=== PATIENT | female | born 1970 | race Caucasian/White ===

== ENCOUNTER 2016-06-04 09:50 | Emergency (ER) | payer OTHER ==
[~2016-06-04] VITALS: Ht 162.6 cm; Wt 88.6 kg
[2016-06-04 09:53] VITALS: TEMP 36.6; Ht 162.6 cm; Wt 88.6 kg
[2016-06-04 10:52] LABS: BASO % 0.8 %; BASO ABS # 0.04 K/uL (0-0.2); COMPLETE YES; EOS % 2.1 %; HEMATOCRIT 38.9 % (37-47); IG% 0.4 %; LYMPH % 36.3 %; LYMPH ABS # 1.86 K/uL (1.2-3.4); MEAN CORPUSCULAR HEMOGLOBIN 31.4 pg (25-34); MEAN CORPUSCULAR HGB CONC 35.2 g/dl (32-36); MEAN PLATELET VOLUME 8.9 fL (7.4-10.4); MONO % 7.8 %; NEUT % 52.6 %; PLATELET COUNT 207 K/uL (130-400); RED BLOOD COUNT 4.37 M/uL (4.2-5.4); WHITE BLOOD COUNT 5.12 K/uL (4.8-10.8)
[2016-06-04] MEDS ORDERED: RIZA10TA18 PO (11:13)
[2016-06-04] MEDS ORDERED: CYNI1000 IM (11:13)
[2016-06-04] MEDS ORDERED: MAGN250T16 PO (11:13)
[2016-06-04] MEDS ORDERED: RIBO1TAB4 PO (11:13)
[2016-06-04] MEDS ORDERED: DULO-24 PO (11:13)
[2016-06-04] MEDS ORDERED: GABA-113 PO (11:13)
[2016-06-04] MEDS ORDERED: ESTR2TAB PO (11:13)
[2016-06-04] MEDS ORDERED: MELO7.5T5 PO (11:13)
[2016-06-04] MEDS ORDERED: LDXCR30 TOP (11:13)
[2016-06-04] MEDS ORDERED: CITA40TA12 PO (11:13)
[2016-06-04] MEDS ORDERED: PRLSR20 PO (11:13)
[2016-06-04 11:14] LABS: BUN/CREATININE RATIO 17.1 (10-20); CALCIUM 9.1 mg/dl (8.5-10.1); CREATININE 0.96 mg/dl (0.60-1.20); POTASSIUM 3.7 mmol/L (3.5-5.1)
[2016-06-04 11:25] LABS: ALB/GLOB RATIO 0.9 (0.9-2); THYROID STIMULATING HORMONE 2.62 uIu/ml (0.300-4.500)
--- NOTE | 2016-06-04 11:30 | EMERGENCY ROOM VISIT NOTE ---
History Report prepared by [place]: Tien Sandoval Under the Supervision of: Dr. Cristi Johnson M.D. First contact with patient: 09:58 Chief Complaint: MENTAL HEALTH EVALUATION Stated Complaint: DEPRESSION History of Present Illness The patient is a 45 year old female who presents to the Emergency Room with complaints of worsening depression over the past two weeks. The patient is feeling suicidal, and has a plan in place. The patient's depression is related to chronic medical symptoms she has been managing, including muscle weakness, joint pain, dyspnea on exertion, and migraines. The patient follows up with Neurology and Rheumatology. The source of her complaints has yet to be identified. The patient has had multiple negative Lyme tests. She denies the possibility of . The patient was referred to the ED after seeing her PCP today. Source of History: patient Onset: two weeks Position: other (psyche) Quality: other (depression) Timing: worsening Associated Symptoms: + SOB, + headache, + weakness Note: Positive SI. Review of Systems See HPI for pertinent positives & negatives. A total of 10 systems reviewed and were otherwise negative. Past Medical & Surgical Medical Problems: (1) Chronic pain Family History No pertinent family history Social History Smoking Status: Never Smoker Marital Status: Housing Status: lives with family Current/Historical Medications Scheduled Citalopram Hydrobromide (Celexa), 40 MG PO DAILY Cyanocobalamin (Cyanocobalamin), 1,000 MCG IM MONTHLY Duloxetine HCl (Cymbalta), 2 CAP PO DAILY Estradiol (Estradiol), 0.5 TAB PO DAILY Gabapentin (Neurontin), 300 MG PO TID Magnesium Oxide (Mg Supplement (Magnesium Oxide), 250 MG PO BID Meloxicam (Mobic), 7.5 MG PO BIDM Omeprazole (Prilosec), 20 MG PO DAILY Riboflavin (Riboflavin), 400 MG PO DAILY Scheduled PRN Fluocinonide (Lidex 0.05% Cream), 1 APPLN TOP BID PRN for UNDECIDED Rizatriptan Benzoate (Maxalt), 10 MG PO UD PRN for Migraine Allergies Coded Allergies: Sulfa Antibiotics (Unverified Allergy, Severe, HIVES, FEVER, 06/04/16) Morphine (Unverified Allergy, Intermediate, HIVES, SWELLING, FEVER, NAUSEA , 06/04/16) Penicillins (Unverified Allergy, Intermediate, HIVES, SWELLING, 06/04/16) Physical Exam Vital Signs Date Time Temp Pulse Resp B/P Pulse Ox O2 Delivery O2 Flow Rate FiO2 06/04/16 15:59 73 16 127/79 97 06/04/16 15:51 85 16 127/73 98 06/04/16 10:51 73 14 119/79 97 Room Air 06/04/16 09:53 36.6 75 16 144/92 99 Room Air Physical Exam GENERAL: Patient is a healthy-appearing well-nourished. Tearful on exam. HEAD: Normocephalic atraumatic EYES: Ocular movements intact pupils equal and react to light OROPHARYNX mucous membranes are moist no exudates present no erythema or edema present NECK: Supple no nuchal rigidity CHEST: Good equal expansion LUNGS: Clear and equal to auscultation CARDIAC: Normal S1 and S2 ABDOMEN: Soft nontender no guarding BACK: No CVA tenderness EXTREMITIES: No pain upon palpation normal muscle strength in all groups no clubbing cyanosis or edema NEURO: Patient is following commands is answering questions appropriately. Alert and oriented x3 Cranial Nerves 2-12 grossly intact PSYCH: Tearful on exam. Admits to suicidal ideation. Medical Decision & Procedures Laboratory Results 06/04/16 10:32 Red Blood Count 4.37, Mean Corpuscular Volume 89.0, Mean Corpuscular Hemoglobin 31.4, Mean Corpuscular Hemoglobin Concent 35.2, Mean Platelet Volume 8.9, Neutrophils (%) (Auto) 52.6, Lymphocytes (%) (Auto) 36.3, Monocytes (%) (Auto) 7.8, Eosinophils (%) (Auto) 2.1, Basophils (%) (Auto) 0.8, Neutrophils # (Auto) 2.69, Lymphocytes # (Auto) 1.86, Monocytes # (Auto) 0.40, Eosinophils # (Auto) 0.11, Basophils # (Auto) 0.04 06/04/16 10:32 Test 06/04/16 10:13 06/04/16 10:15 06/04/16 10:32 Bedside Glucose 109 mg/dl (70-90) Urine Color DK YELLOW Urine Appearance CLEAR (CLEAR) Urine pH 8.5 (4.5-7.5) Urine Specific Ensign 1.009 (1.000-1.030) Urine Protein NEG (NEG) Urine Glucose (UA) NEG (NEG) Urine Ketones NEG (NEG) Urine Occult Blood NEG (NEG) Urine Nitrite NEG (NEG) Urine Bilirubin NEG (NEG) Urine Urobilinogen NEG (NEG) Urine Leukocyte Esterase SMALL (NEG) Urine WBC (Auto) 10-30 /hpf (0-5) Urine RBC (Auto) 0-4 /hpf (0-4) Urine Hyaline Casts (Auto) 1-5 /lpf (0-5) Urine Epithelial Cells (Auto) >30 /lpf (0-5) Urine Bacteria (Auto) 1+ (NEG) Urine Opiates Screen NEG (NEG) Urine Methadone, Qualitative NEG (NEG) Urine Barbiturates NEG (NEG) Urine Phencyclidine (PCP) Level NEG (NEG) Ur Amphetamine/Methamphetamine NEG (NEG) MDMA (Ecstasy) Screen NEG (NEG) Urine Benzodiazepines Screen NEG (NEG) Urine Cocaine Metabolite NEG (NEG) Urine Marijuana (THC) NEG (NEG) White Blood Count 5.12 K/uL (4.8-10.8) Red Blood Count 4.37 M/uL (4.2-5.4) Hemoglobin 13.7 g/dL (12.0-16.0) Hematocrit 38.9 % (37-47) Mean Corpuscular Volume 89.0 fL (80-100) Mean Corpuscular Hemoglobin 31.4 pg (25-34) Mean Corpuscular Hemoglobin Concent 35.2 g/dl (32-36) Platelet Count 207 K/uL (130-400) Mean Platelet Volume 8.9 fL (7.4-10.4) Neutrophils (%) (Auto) 52.6 % Lymphocytes (%) (Auto) 36.3 % Monocytes (%) (Auto) 7.8 % Eosinophils (%) (Auto) 2.1 % Basophils (%) (Auto) 0.8 % Neutrophils # (Auto) 2.69 K/uL (1.4-6.5) Lymphocytes # (Auto) 1.86 K/uL (1.2-3.4) Monocytes # (Auto) 0.40 K/uL (0.11-0.59) Eosinophils # (Auto) 0.11 K/uL (0-0.5) Basophils # (Auto) 0.04 K/uL (0-0.2) RDW Standard Deviation 38.6 fL (36.4-46.3) RDW Coefficient of Variation 12.0 % (11.5-14.5) Immature Granulocyte % (Auto) 0.4 % Immature Granulocyte # (Auto) 0.02 K/uL (0.00-0.02) Anion Gap 9.0 mmol/L (3-11) Est Creatinine Clear Calc Drug Dose 78.1 ml/min Estimated GFR () 81.6 Estimated GFR (Non- 70.4 BUN/Creatinine Ratio 17.1 (10-20) Calcium Level 9.1 mg/dl (8.5-10.1) Total Bilirubin 0.4 mg/dl (0.2-1) Direct Bilirubin 0.1 mg/dl (0-0.2) Aspartate Amino Transf (AST/SGOT) 12 U/L (15-37) Alanine Aminotransferase (ALT/SGPT) 20 U/L (12-78) Alkaline Phosphatase 95 U/L (45-117) Total Protein 7.2 gm/dl (6.4-8.2) Albumin 3.5 gm/dl (3.4-5.0) Globulin 3.7 gm/dl (2.5-4.0) Albumin/Globulin Ratio 0.9 (0.9-2) Thyroid Stimulating Hormone (TSH) 2.620 uIu/ml (0.300-4.500) Ethyl Alcohol mg/dL < 3.0 mg/dl (0-3) Labs reviewed by ED physician. ED Course 1115: Past medical records reviewed. The patient was evaluated in room A8. A complete history and physical examination was performed. 1400: The patient was accepted at [facility]. Transfer is being arranged. Medical Decision Differential diagnosis: Etiologies such as mood disorder, infection, hypoglycemia, electrolyte abnormalities, cardiac sources, intracerebral event, toxicologic, neurologic, as well as others were entertained. This is a 45-year-old female who presents emergency department complaining of suicidal ideation. The patient was medically cleared by me. I did discuss case with case management who got the patient accepted to .[facility]. Patient was in agreement with the treatment plan. Impression Primary Impression: Mood disorder Scribe Attestation The scribe's documentation has been prepared under my direction and personally reviewed by me in its entirety. I confirm that the note above accurately reflects all work, treatment, procedures, and medical decision making performed by me. Departure Information Dispostion Mental Health Acute Care Referrals Ame Costa D.O. (PCP) Forms HOME CARE DOCUMENTATION FORM, IMPORTANT VISIT INFORMATION Patient Instructions My [facility]
[2016-06-04 11:34] LABS: URINE APPEARANCE CLEAR (CLEAR); URINE BILIRUBIN NEG (NEG); URINE COLOR DK YELLOW; URINE EPITHELIAL CELL AUTO >30 /lpf (0-5); URINE NITRITE NEG (NEG); URINE PH 8.5 (4.5-7.5); URINE SPECIFIC GRAVITY 1.009 (1.000-1.030); UROBILINOGEN NEG (NEG)
[2016-06-04 11:38] LABS: MANUAL MICROSCOPIC REQUIRED? NO; REVIEW REQ? NO
[2016-06-04 12:19] LABS: BENZODIAZEPINE, URINE NEG (NEG); COCAINE,URINE NEG (NEG); PHENCYCLIDINE, URINE NEG (NEG)
[2016-06-04 15:59] VITALS: BP 127/79; PULSE 73; O2SAT 97
== END 2016-06-04 15:58 ==
LOC: C.EDB 09:52 → C.EDA 15:58
DX: Z00.8 Encounter for other general examination (principal); F32.9 Major depressive disorder, single episode, unspecified; G89.29 Other chronic pain

== ENCOUNTER 2020-01-17 12:18 | Inpatient (IN) ==
[2020-01-17] MEDS ORDERED: ONDANSETRON INJ 2 MG/ML 2 ML VIAL IV STA (12:40)
[2020-01-17] MEDS ORDERED: SODIUM CHLORIDE 0.9% 1000ML 1,000 ML IV SCH (12:45)
[2020-01-17 13:16] LABS: Basophils # (auto) 0.03 K/uL (0-0.2); Basophils % (auto) 0.4 %; Eosinophils # (auto) 0.08 K/uL (0-0.5); Hematocrit (blood only) 42.4 % (37-47); Hemoglobin 14.6 g/dL (12.0-16.0); Immature Granulocytes # (auto) 0.02 K/uL (0.00-0.02); Immature Granulocytes % (auto) 0.3 %; Lymphocytes # (auto) 1.37 K/uL (1.2-3.4); Lymphocytes % (auto) 17.5 %; Mean Corpuscular Hemoglobin 31.3 pg (25-34); Mean Corpuscular Hgb Conc 34.4 g/dL (32-36); Mean Corpuscular Volume 90.8 fL (80-100); Mean Platelet Volume 8.9 fL (7.4-10.4); Monocytes % (auto) 5.1 %; Neutrophils # (auto) 5.94 K/uL (1.4-6.5); Neutrophils % (auto) 75.7 %; Platelet Count 256 K/uL (130-400); RDW Coefficient of Variation 12.7 % (11.5-14.5); RDW Standard Deviation 41.9 fL (36.4-46.3); Red Blood Count 4.67 M/uL (4.2-5.4); White Blood Count 7.84 K/uL (4.8-10.8)
--- NOTE | 2020-01-17 13:16 | XRay Report ---
XR chest 1V portable CLINICAL HISTORY: Right upper quadrant pain. COMPARISON STUDY: No previous studies for comparison. FINDINGS: Lung volumes are mildly diminished. Linear bibasilar opacities represent atelectasis. There is no consolidation or evidence for pulmonary edema. Cardiac size is normal. Mediastinal contours ar e normal. IMPRESSION: Low lung volumes with bibasilar atelectasis. No acute findings. ACT 112: Negative or not required by law. Electronically signed by: Ayan Umanzor M.D. 01/17/2020 1:15 PM
--- NOTE | 2020-01-17 13:18 | XRay Report ---
KUB CLINICAL HISTORY: Right upper quadrant abdominal pain. COMPARISON STUDY: None. FINDINGS: A few prominent loops of small bowel within left mid abdomen are noted. There is no convinc ing evidence for a bowel obstruction on this exam. Postoperative findings within the lumbosacral spin e are noted. A right pelvic calcification favors a phlebolith. IMPRESSION: A few prominent loops of small bowel within left mid abdomen without convincing evidence for a bowel obstruction. ACT 112: Negative or not required by law. Electronically signed by: Ayan Umanzor M.D. 01/17/2020 1:16 PM
[2020-01-17 13:35] LABS: Alanine Aminotransferase 480 U/L (12-78); Albumin Level 3.4 gm/dl (3.4-5.0); Aspartate Aminotransferase 548 U/L (15-37); BUN Creatinine Ratio 17.4 (10-20); Blood Urea Nitrogen 16 mg/dl (7-18); Calcium 9.4 mg/dl (8.5-10.1); Carbon Dioxide 26 mmol/L (21-32); Chloride 107 mmol/L (98-107); Est GFR (African American) 82.5; Est GFR (Non-African American) 71.2; Glucose 97 mg/dl (70-99); Potassium 3.9 mmol/L (3.5-5.1); Sodium 139 mmol/L (136-145)
[2020-01-17 13:40] LABS: Albumin Globulin Ratio 0.8 (0.9-2); Alkaline Phosphatase 212 U/L (45-117); Bilirubin,Total 1.4 mg/dl (0.2-1); Lipase 5864 U/L (73-393); Total Protein 7.4 gm/dl (6.4-8.2); Troponin I < 0.015 ng/ml (0-0.045)
--- NOTE | 2020-01-17 14:15 | Ultrasound Report ---
BILIARY ULTRASOUND CLINICAL HISTORY: Right upper quadrant abdominal pain COMPARISON STUDY: No previous studies for comparison. FINDINGS: There is increased hepatic echogenicity, likely secondary to hepatic steatosis. There is pr esumed focal fatty sparing adjacent to the gallbladder. No pancreatic masses are visualized There is no hydronephrosis. There are multiple shadowing gallbladder calculi. There is borderline gallbladder wall thickening and mild gallbladder wall hyperemia. Clinical correlation regards to cholecystitis is recommended. The t echnologist reports a positive sonographic Nuno sign. The common bile duct measures 6 mm. IMPRESSION: 1. Cholelithiasis, borderline gallbladder wall thickening with mild gallbladder wall hyperemia. Techn ologist reported positive sonographic Nuno sign. Clinical correlation in regards to acute cholecyst itis is recommended. A nuclear medicine hepatobiliary study could be obtained in follow-up to assess cystic duct patency as deemed clinically appropriate 2. Hepatic steatosis ACT 112: Negative or not required by law. Electronically signed by: Иван Meza M.D. 01/17/2020 2:14 PM
--- NOTE | 2020-01-17 14:32 | Emergency Department Note ---
Impression & Plan Acute cholecystitis, Acute gallstone pancreatitis, Abdominal pain, epigastric ED Provider Note NAME: BEATA CHOUDHURY AGE: 49 SEX: F : 1970 ARRIVES VIA: Walk-In INFORMANT: Patient, ED PROVIDER(S): Dirk Santana DO CHIEF COMPLAINT: Epigastric pain HPI: The patient is a 49-year-old female who presented to the emergency departm ent for an evaluation of epigastric pain. She is had pain over the last few days but it became worse over the last 24 hours. She notices worsening pain with food as well as ambulation. She notices pain specifically in her epigastric region but also radiates to her back. She denies having any specific chest pain or difficulty breathing. She has had no lower extremity swelling. She states the pain is moderate to severe. She states the pain is improved by remaining still and not moving. She has not seen her primary care physician for this pain. The patient is concerned that this could be her gallbladder. The patient does not use alcoholic beverages. ROS: See above HPI for pertinent positives & negatives. A total of 10 systems reviewed and were otherwise negative. PAST MEDICAL HISTORY: See Below PAST SURGICAL HISTORY: See Below FAMILY HISTORY: See Below SOCIAL HISTORY: See Below HOME MEDICATIONS: See Below ALLERGIES: See Below VITALS: See Below PHYSICAL EXAMINATION: GENERAL: The patient is awake and alert. She is very anxious appearing and appears to be in significant pain. EYES: The conjunctivae are clear. The pupils are round and reactive. EARS, NOSE, MOUTH AND THROAT: The nose is without any evidence of any deformity. NECK: The neck is nontender and supple. RESPIRATORY: Normal respiratory effort is noted there is no evidence of wheezing rhonchi or rales CARDIOVASCULAR: Regular rate and rhythm noted there no murmurs rubs or gallops normal S1 normal S2. GASTROINTESTINAL: The abdomen is mildly distended but soft. There is significant epigastric and right upper quadrant tenderness to palpation. There is mild guarding in the right upper quadrant. MUSCULOSKELETAL/EXTREMITIES: There is no evidence of gross deformity full range of motion is noted in the hips and shoulders. SKIN: There is no obvious evidence of any rash. There are no petechiae, pallor or cyanosis noted. NEUROLOGIC: Patient is awake alert and oriented x3 strength is symmetric patellar reflexes are 2+ bilaterally MEDICAL DECISION MAKING: The patient is a 49-year-old female who presented to the emergency department for an evaluation of upper abdominal pain. The patient had mostly epigastric abdominal pain but also had right upper quadrant pain on physical exam. She had back pain as well. The patient's history and physical exam appear to be consistent with gallbladder pathology. This was confirmed on radiographic as well as laboratory studies. She was treated with IV fluids and IV pain medication. She was also given proton pump inhibitor and H2 blockers. She was treated with IV antibiotics for presumed cholecystitis noted on ultrasound. She was found to have an elevated lipase. Her common bile duct was normal size. Is possible she may have passed a gallstone. I discussed the patient's condition with the on-call general surgical group. They have agreed to evaluate the patient for further management but recommend the patient be evaluated by medicine as well as GI. I discussed this case with the [facility]. They will evaluate the patient in the emergency department for further management and disposition. Triage Nursing notes reviewed. Prior medical records reviewed Vital Signs: reviewed and remarkable for elevated blood pressure. Differential diagnosis: Etiologies such as appendicitis, diverticulitis, obstruction, inflammatory bowel disease, renal colic, PUD, biliary pathology, pancreatitis, mesenteric ischemia, aortic pathology, infections, genitourinary, UTI, perforated viscus, as well as others were entertained. ER treatment provided: See below Diagnostics interpreted by me: ECG: EKG was obtained in the emergency department. My interpretation is normal sinus rhythm at 75 bpm. There is no ectopy. There was no acute ST segment abnormalities noted. There is no previous tracing for comparison. Cardiac Monitoring: An order was placed for continuous cardiac monitoring. The monitor shows a rate of 82 bpm with sinus rhythm. Laboratory studies: As stated above and show below. Imaging studies: See below Consultation(s): 1445: I discussed this case with Otf who is on-call for the general surgical group. They will evaluate the patient in consultation but recommend that medicine admit the patient for further work-up as well as consultation with GI 1500: I discussed this case with Helga who is on-call for the [facility] group. They will evaluate the patient in the emergency department for further management and disposition. Past Med/Surg History Medical History Chronic fatigue Fibromyalgia Generalized osteoarthritis GERD without esophagitis Hx of migraines Surgical History History of partial hysterectomy Hx of lumbosacral spine surgery Family History Brother Leukemia Sister Melanoma Social History Smoking Status: Never smoker Hx Alcohol Use: Yes Alcohol Intake Frequency: Monthly or Less Feels Safe at Home: Yes Allergies Allergies Allergy/AdvReac Type Severity Reaction Status Date / Time Sulfa (Sulfonamide Allergy Severe HIVES, Unverified 06/04/16 11:02 Antibiotics) FEVER morphine Allergy Intermediate HIVES, Unverified 06/04/16 11:02 SWELLING, FEVER, NAUSEA Penicillins Allergy Intermediate HIVES, Unverified 06/04/16 11:02 SWELLING Home Meds Home Medications Medication Instructions Recorded Confirmed cetirizine 10 mg PO DAILY 01/17/20 01/17/20 cholecalciferol (vitamin D3) 50 mcg PO Q OTHER DAY 01/17/20 01/17/20 cranberry 400 mg PO DAILY 01/17/20 01/17/20 cyanocobalamin (vitamin B-12) 100 mcg PO DAILY 01/17/20 01/17/20 duloxetine 30 mg PO DAILY 01/17/20 01/17/20 estradiol 1 mg PO DAILY 01/17/20 01/17/20 fluticasone propionate [Flonase] 1 spray INTRANASAL DAILY PRN 01/17/20 01/17/20 gabapentin 300 mg PO DAILY 01/17/20 01/17/20 lul (Zingiber officinalis) 550 mg PO Q OTHER DAY 01/17/20 01/17/20 lorazepam 1 mg PO BID PRN 01/17/20 01/17/20 magnesium oxide 250 mg PO DAILY 01/17/20 01/17/20 nabumetone 500 mg PO DAILY 01/17/20 01/17/20 omeprazole 40 mg PO DAILY 01/17/20 01/17/20 riboflavin (vitamin B2) 400 mg PO DAILY 01/17/20 01/17/20 rizatriptan 10 mg PO UD PRN 01/17/20 01/17/20 turmeric root extract 500 mg PO Q OTHER DAY 01/17/20 01/17/20 vitamin E 400 unit PO Q OTHER DAY 01/17/20 01/17/20 Results & Data (ED) Vital Signs Vital Signs - 24 hr 01/17/20 12:22 01/17/20 13:50 01/17/20 16:00 Temperature 37.2 C Temperature Source Oral Pulse Rate 83 Pulse Rate [Left Finger] 76 88 Respiratory Rate 20 23 21 Respiratory Effort / Characteristics Non-Labored Respiratory Depth Normal Respiratory Pattern Regular Blood Pressure 147/104 H Blood Pressure [Left Arm] 129/96 162/88 H Blood Pressure Mean 118 Blood Pressure Mean [Left Arm] 107 112 Blood Pressure Position Sitting Pulse Oximetry 96 98 98 Oxygen Delivery Method Room Air Sepsis Recent Fever Within 48 Hours No Sepsis New/Unexplained Change in Mental Status No Sepsis Action Taken by Nursing No Action Required Home Medications Current Medication List: was personally reviewed by me Laboratory Data Attestation: I reviewed the patient's lab results. Result diagrams: 01/17/20 13:08 01/17/20 13:08 Lab Results 01/17/20 01/17/20 01/17/20 Range/Units 13:08 13:08 14:10 WBC 7.84 (4.8-10.8) K/uL RBC 4.67 (4.2-5.4) M/uL Hgb 14.6 (12.0-16.0) g/dL Hct 42.4 (37-47) % MCV 90.8 (80-100) fL MCH 31.3 (25-34) pg MCHC 34.4 (32-36) g/dL RDW Std Deviation 41.9 (36.4-46.3) fL RDW Coeff of Darrin 12.7 (11.5-14.5) % Plt Count 256 (130-400) K/uL MPV 8.9 (7.4-10.4) fL Immature Gran % (Auto) 0.3 % Neut % (Auto) 75.7 % Lymph % (Auto) 17.5 % Dickey % (Auto) 5.1 % Eos % (Auto) 1.0 % Baso % (Auto) 0.4 % Neut # (Auto) 5.94 (1.4-6.5) K/uL Lymph # (Auto) 1.37 (1.2-3.4) K/uL Dickey # (Auto) 0.40 (0.11-0.59) K/uL Eos # (Auto) 0.08 (0-0.5) K/uL Baso # (Auto) 0.03 (0-0.2) K/uL Immature Gran # (Auto) 0.02 (0.00-0.02) K/uL Sodium 139 (136-145) mmol/L Potassium 3.9 (3.5-5.1) mmol/L Chloride 107 (98-107) mmol/L Carbon Dioxide 26 (21-32) mmol/L Anion Gap 6.0 (3-11) BUN 16 (7-18) mg/dl Creatinine 0.93 (0.6-1.2) mg/dl Est Cr Clr Drug Dosing 81.0 ml/min Est GFR ( Amer) 82.5 Est GFR (Non-Af Amer) 71.2 BUN/Creatinine Ratio 17.4 (10-20) Glucose 97 (70-99) mg/dl Calcium 9.4 (8.5-10.1) mg/dl Total Bilirubin 1.4 H (0.2-1) mg/dl AST 548 H (15-37) U/L ALT 480 H (12-78) U/L Alkaline Phosphatase 212 H (45-117) U/L Troponin I < 0.015 (0-0.045) ng/ml Total Protein 7.4 (6.4-8.2) gm/dl Albumin 3.4 (3.4-5.0) gm/dl Globulin 4.0 (2.5-4.0) gm/dl Albumin/Globulin Ratio 0.8 L (0.9-2) Lipase 5864 H (73-393) U/L Urine Color Yellow Urine Appearance Clear (Clear) Urine pH 7.5 (4.5-7.5) Ur Specific [place] 1.007 (1.000-1.030) Urine Protein Negative (Negative) Urine Glucose (UA) Negative (Negative) Urine Ketones Negative (Negative) Urine Blood Negative (Negative) Urine Nitrite Negative (Negative) Urine Bilirubin Negative (Negative) Urine Urobilinogen Negative (Negative) Ur Leukocyte Esterase Negative (Negative) Administered Medications Discontinued Medications Sodium Chloride (Nss 1000ml) 1,000 mls @ 999 mls/hr IV .Q1H1M [facility] Stop: 01/17/20 13:45 Last Infusion: 01/17/20 14:05 Dose: 0 mls/hr Documented by: [id number] Admin: 01/17/20 13:14 Dose: 999 mls/hr Documented by: [id number] Famotidine (Pepcid 20mg Iv Push) 20 mg in 5 mls @ 2.5 mls/min IV NOW STA Stop: 01/17/20 14:38 Last Admin: 01/17/20 15:02 Dose: 2.5 mls/min Documented by: [id number] Pantoprazole Sodium 40 mg/ (Syringe) 10 mls @ 5 mls/min IV NOW ONE Stop: 01/17/20 14:38 Last Admin: 01/17/20 15:02 Dose: 5 mls/min Documented by: [id number] Cefoxitin Sodium (Mefoxin) 2,000 mg in 60 mls @ 100 mls/hr IV NOW STA Stop: 01/17/20 15:12 Last Admin: 01/17/20 15:02 Dose: 100 mls/hr Documented by: [id number] Ondansetron HCl (Ondansetron Inj 2 Mg/Ml 2 Ml Vial) 4 mg IV NOW STA Stop: 01/17/20 12:41 Last Admin: 01/17/20 13:13 Dose: 4 mg Documented by: [id number] Imaging Data Radiologist's Impression: Patient: BEATA CHOUDHURY Admit Date: 01/17/20 MR#: [id number] Address1: [address] [place] [address] Acct ID:[id number] Address2: Date: 1970 [facility] Zip: [place] [address] Age: 49 Location: ED Sex: F Room/Bed: Att Phy: Diagnosis: PAIN IN CENTER ABD RADIATING TO BACK Kristen Phy: Ame Costa DO Service Date: 01/17/20 [facility] Phy: Interpreting Phy: Ayan Umanzor MD Admit Phy: Ordering Phy: Dirk Santana DO cc: ~ XR chest 1V portable CLINICAL HISTORY: Right upper quadrant pain. COMPARISON STUDY: No previous studies for comparison. FINDINGS: Lung volumes are mildly diminished. Linear bibasilar opacities represe nt atelectasis. There is no consolidation or evidence for pulmonary edema. Cardiac size is normal. Mediastinal contours are normal. IMPRESSION: Low lung volumes with bibasilar atelectasis. No acute findings. ACT 112: Negative or not required by law. Electronically signed by: Ayan Umanzor M.D. 01/17/2020 1:15 PM Dictated: 01/17/201313 Transcribed: 01/17/201313 Patient: BEATA CHOUDHURY Admit Date: 01/17/20 MR#: [id number] Address1: [address] [facility] [address] [facility] Acct ID:[id number] Address2: Date: 1970 [facility] Zip: [place] [address] Age: 49 Location: ED Sex: F Room/Bed: Att Phy: Diagnosis: PAIN IN CENTER ABD RADIATING TO BACK Kristen Phy: Ame Costa DO Service Date: 01/17/20 [facility] Phy: Interpreting Phy: Ayan Umanzor MD Admit Phy: Ordering Phy: Dirk Santana DO cc: ~ KUB CLINICAL HISTORY: Right upper quadrant abdominal pain. COMPARISON STUDY: None. FINDINGS: A few prominent loops of small bowel within left mid abdomen are noted. There is no convincing evidence for a bowel obstruction on this exam. Postoperative findings within the lumbosacral spine are noted. A right pelvic calcification favors a phlebolith. IMPRESSION: A few prominent loops of small bowel within left mid abdomen without convincing evidence for a bowel obstruction. ACT 112: Negative or not required by law. Electronically signed by: Ayan Umanzor M.D. 01/17/2020 1:16 PM Dictated: 01/17/201315 Transcribed: 01/17/201315 Patient: BEATA CHOUDHURY Admit Date: 01/17/20 MR#: [id number] Address1: [address] [facility] Acct ID:[id number] Address2: Date: 1970 [facility] Zip: [place] [address] Age: 49 Location: ED Sex: F Room/Bed: Att Phy: Diagnosis: PAIN IN CENTER ABD RADIATING TO BACK Kristen Phy: Ame Costa DO Service Date: 01/17/20 Fam Phy: Interpreting Phy: Иван Meza MD Admit Phy: Ordering Phy: Dirk Santana DO cc: ~ BILIARY ULTRASOUND CLINICAL HISTORY: Right upper quadrant abdominal pain COMPARISON STUDY: No previous studies for comparison. FINDINGS: There is increased hepatic echogenicity, likely secondary to hepatic steatosis. There is presumed focal fatty sparing adjacent to the gallbladder. No pancreatic masses are visualized There is no hydronephrosis. There are multiple shadowing gallbladder calculi. There is borderline gallbladder wall thickening and mild gallbladder wall hyperemia. Clinical correlation regards to cholecystitis is recommended. The technologist reports a positive sonographic Nuno sign. The common bile duct measures 6 mm. IMPRESSION: 1. Cholelithiasis, borderline gallbladder wall thickening with mild gallbladder wall hyperemia. Technologist reported positive sonographic Nuno sign. Clinical correlation in regards to acute cholecystitis is recommended. A nuclear medicine hepatobiliary study could be obtained in follow-up to assess cystic duct patency as deemed clinically appropriate 2. Hepatic steatosis ACT 112: Negative or not required by law. Electronically signed by: Иван Meza M.D. 01/17/2020 2:14 PM Dictated: 01/17/20 1411 Transcribed: 01/17/20 1411 Blood Pressure Blood Pressure Findings: Normal blood pressure Discharge Plan Visit Data Chief Complaint: Abdominal Pain Stated Complaint: PAIN IN CENTER ABD RADIATING TO BACK ED Provider: Dirk Santana Discharge Problem: Acute cholecystitis, Acute gallstone pancreatitis, Abdominal pain, epigastric Patient Disposition: Being Evaluated by Hospitalist Condition: Good Forms Stand Alone Forms: [facility] [address] [place] Prescriptions Prescriptions: No Action cetirizine 10 mg tablet 10 mg PO DAILY RF: 0 omeprazole 40 mg capsule,delayed release(DR/EC) 40 mg PO DAILY RF: 0 estradiol 1 mg tablet 1 mg PO DAILY RF: 0 duloxetine 30 mg capsule,delayed release(DR/EC) 30 mg PO DAILY RF: 0 rizatriptan 10 mg tablet 10 mg PO UD PRN (Reason: Migraine Headache) RF: 0 gabapentin 300 mg capsule 300 mg PO DAILY RF: 0 lorazepam 1 mg tablet 1 mg PO BID PRN (Reason: Anxiety) RF: 0 nabumetone 500 mg tablet 500 mg PO DAILY RF: 0 magnesium oxide 250 mg magnesium Tablet 250 mg PO DAILY RF: 0 riboflavin (vitamin B2) 400 mg Tablet 400 mg PO DAILY RF: 0 cyanocobalamin (vitamin B-12) 100 mcg Tablet 100 mcg PO DAILY RF: 0 cranberry 400 mg Capsule 400 mg PO DAILY RF: 0 fluticasone propionate [Flonase] 50 mcg/actuation [place],Suspension 1 spray INTRANASAL DAILY PRN (Reason: Congestion) RF: 0 vitamin E 400 unit Capsule 400 unit PO Q OTHER DAY RF: 0 lul (Zingiber officinalis) 550 mg Capsule 550 mg PO Q OTHER DAY RF: 0 cholecalciferol (vitamin D3) 50 mcg (2,000 unit) Capsule 50 mcg PO Q OTHER DAY RF: 0 turmeric root extract 500 mg Capsule 500 mg PO Q OTHER DAY RF: 0 Referrals Referrals: Ame Costa DO [Primary Care Provider] -
[2020-01-17 14:36] LABS: Appearance Urine Clear (Clear); Bilirubin Urine Negative (Negative); Blood Urine Negative (Negative); Color Urine Yellow; Glucose Urine UA Negative (Negative); Ketones Urine Negative (Negative); Leukocyte Esterase Urine Negative (Negative); Nitrite Urine Negative (Negative); Protein Urine Negative (Negative); Specific Gravity Urine 1.007 (1.000-1.030); Urobilinogen Urine Negative (Negative); pH Urine 7.5 (4.5-7.5)
[2020-01-17] MEDS ORDERED: PANTOprazole 40 MG in SYRINGE 0 ML IV ONE (14:37)
[2020-01-17] MEDS ORDERED: fentaNYL citrate 100 MCG/2 ML VIAL IV PRN (14:37)
[2020-01-17] MEDS ORDERED: FAMOTIDINE 20MG IV PUSH 20 MG/5 ML SYR IV STA (14:37)
[2020-01-17] MEDS ORDERED: cefOXitin 2,000 MG/60 ML BAG IV STA (14:37)
--- NOTE | 2020-01-17 14:42 | Electrocardiogram Report ---
Test Reason : Blood Pressure : / mmHG Vent. Rate : 075 BPM Atrial Rate : 075 BPM P-R Int : 134 ms QRS Dur : 080 ms QT Int : 408 ms P-R-T Axes : 044 017 023 degrees QTc Int : 455 ms Normal sinus rhythm No previous ECGs available Confirmed by Speedy Ryan ([id number]) on 01/17/2020 2:41:57 PM Referred By: REFERRED SELF Confirmed By:Fabian Ryan
--- NOTE | 2020-01-17 15:09 | Surgery Consultation ---
Date of Consultation January 17, 2020 Assessment & Plan (1) Biliary acute pancreatitis: normal white count, equivocal U/S findings for acute cholecystitis trend labs, GI consult will follow, eventual lap esther once pancreatitis resolves Supervising Physician Co-Signing Physician Notes Patient seen and examined, labs and imaging reviewed, agree with above. 49-year-old female presented to the emergency department with epigastric abdominal pain that started yesterday after eating [employer] breakfast sandwich. She has had a few episodes similar to this in the past, but never this severe. The pain did resolve after a few hours but then recurred after eating some crackers. Otherwise healthy, not on any blood thinners. On exam she is afebrile stable vitals. Abdomen is soft but tender to palpation in the epigastrium and right upper quadrant. Negative Nuno sign. Her labs reveal total bilirubin of 1.4 and elevated transaminitis along with an elevated lipase. Ultrasound showed gallstones with a 6 mm bile duct and equivocal signs for cholecystitis. 49-year-old female with likely choledocholithiasis with cholecystitis and pancreatitis Admit to medicine GI consult Possible ERCP versus MRCP Plan for laparoscopic cholecystectomy either this admission or in short interval follow-up Discussed the risk of surgery to include but not limited to bleeding, infection, retained stone, bile leak, damage surrounding structures including common bile duct, conversion open, need for future more extensive surgery, and the risk of anesthesia Surgery will continue to follow The diagnosis, details of the procedure and recovery, plan of care were discussed the patient, all questions were answered, the patient expressed understanding agrees the plan of care as stated History of Present Illness History of Present Illness 49 y/o female with severe abdominal pain yesterday afternoon a few hours after eating. Pain lasted several hours, she later tried to eat cheese and crackers and pain returned and has been constant. Nausea, no vomiting. Few episodes of post prandial pain in the past but nothing like this. Allergies Allergy/AdvReac Type Severity Reaction Status Date / Time Sulfa (Sulfonamide Allergy Severe HIVES, Unverified 06/04/16 11:02 Antibiotics) FEVER morphine Allergy Intermediate HIVES, Unverified 06/04/16 11:02 SWELLING, FEVER, NAUSEA Penicillins Allergy Intermediate HIVES, Unverified 06/04/16 11:02 SWELLING Home Medications Home Medications Medication Instructions Recorded Confirmed Type CITALOPRAM HYDROBROMIDE (CELEXA) 40 mg PO DAILY #0 tab 06/04/16 History Cyanocobalamin 1,000 mcg IM MONTHLY #0 06/04/16 History Duloxetine HCl (Cymbalta) 2 cap PO DAILY 30 Days #60 cap 06/04/16 History ESTRADIOL 0.5 tab PO DAILY 90 Days #45 tab 06/04/16 History FLUOCINONIDE (LIDEX 0.05% CREAM) 1 applic TOPICAL BID PRN #0 06/04/16 History Gabapentin (Neurontin) 300 mg PO TID #0 cap 06/04/16 History MAGNESIUM OXIDE (MG SUPPLEMENT 250 mg PO BID #0 06/04/16 History (MAGNESIUM OXIDE) Meloxicam (Mobic) 7.5 mg PO BIDM #0 tab 06/04/16 History OMEPRAZOLE (PRILOSEC) 20 mg PO DAILY #0 cap 06/04/16 History RIBOFLAVIN 400 mg PO DAILY #0 06/04/16 History RIZATRIPTAN BENZOATE (MAXALT) 10 mg PO UD PRN #0 tab 06/04/16 History Patient History Medical History Chronic fatigue Fibromyalgia Generalized osteoarthritis GERD without esophagitis Hx of migraines Surgical History History of partial hysterectomy Hx of lumbosacral spine surgery Family History Brother Leukemia Sister Melanoma Social History Smoking Status: Never smoker Hx Alcohol Use: Yes Alcohol Intake Frequency: Monthly or Less Feels Safe at Home: Yes Review of Systems Constitutional: no fever and no chills Gastrointestinal: + abdominal pain and + nausea; no vomiting Physical Exam Constitutional: WD/WN, vitals as above Respiratory: normal respiratory effort, lungs clear to auscultation Cardiovascular: RRR, no murmur, no edema Gastrointestinal (Abdomen): Inspection/Auscultation: + abdomen distended (minimal) Percussion/Palpation: + abdomen tender (mild epigastric/RUQ) and abdomen soft Results & Data ([facility]) Vital Signs (Past 12 Hours) Vital Signs Temp Pulse Pulse Resp BP BP Pulse Ox 01/17/20 13:50 76 23 129/96 98 01/17/20 12:22 37.2 C 83 20 147/104 H 96 PG Care Time/CCT Total # of Minutes Spent Total Time Spent with Patient: Total time spent is greater than 50% in coordination of care (as documented) at patient's floor/unit and/or counseling patient: Coding Level of Care Code 70748 Inpt Consult Level 3 Diagnoses Biliary acute pancreatitis K85.10
--- NOTE | 2020-01-17 16:25 | History & Physical Report ---
Date of Service January 17, 2020 Assessment & Plan (1) Biliary acute pancreatitis: CBD 6 mm on ultrasound but no clear evidence for stone in CBD. Cholelithiasis. May have passed stone. - Consult GI for recommendation - MRCP vs ERCP - Appreciate surgical input - eventual cholecystectomy once pancreatitis improved - NPO with aggressive IVF hydration - Follow labs - Zofran for nausea - Pain control (2) GERD without esophagitis: - Continue PPI therapy (3) Nonintractable migraine: Holding supplements while NPO - pt uses riboflavin and mag oxide for prevention at baseline. Has Maxalt if needed for symptoms (4) Fibromyalgia: - Continue Cymbalta and gabapentin Pt seen and evaluated with collaborating physician, Dr. Recinos. Plan of care discussed and as outlined above. All questions answered. Pt requests to be full code as long as a reasonable chance of recovery. is her decision maker if she is unable to speak for herself. Will start heparin subQ for DVT prophylaxis. Cesar Tran PA-C History of Present Illness Chief Complaint: Epigastric pain Primary Care Provider: Ame Costa DO This is a 49 y/o female with a hx of GERD, migraines, depression, and OA who presents with epigastric pain and nausea that started yesterday. Pt reports the abrupt onset of sharp, stabbing epigastric pain yesterday late morning. It radiated to her RUQ, through to her back and to her right shoulder blade. She had associated nausea but no vomiting. The pain lasted about 3-4 hours before it subsided. By late last evening, she had started to feel better so she attempted to eat some crackers. Shortly thereafter, she developed recurrent severe epigastric pain and and nausea. She tried to sleep it off last evening but the pain kept waking her up. This morning she attempted to get ready to go to work but the pain was so severe that she decided to drive herself to the ED for evaluation. Nausea continued this morning but was relieved by Zofran given in the ED. She felt cool and clammy last evening and had diaphoresis when pain was severe but denies any fevers. This morning her urine was dark but no dysuria, hematuria, frequency. Bowel pattern is unchanged from baseline variability. She denies melena and hematochezia. She reports at least two similar episodes of pain over the summer that both occurred after eating strawberries. Those episodes lasted about an hour and resolved without additional intervention. She has a history of acid reflux that is controlled on omeprazole 40 mg daily. No prior history of gallbladder disease or pancreatitis. Allergies Allergy/AdvReac Type Severity Reaction Status Date / Time Sulfa (Sulfonamide Allergy Severe HIVES, Unverified 06/04/16 11:02 Antibiotics) FEVER morphine Allergy Intermediate HIVES, Unverified 06/04/16 11:02 SWELLING, FEVER, NAUSEA Penicillins Allergy Intermediate HIVES, Unverified 06/04/16 11:02 SWELLING Home Medications Home Medications Medication Instructions Recorded Confirmed Type cetirizine 10 mg PO DAILY 01/17/20 01/17/20 History cholecalciferol (vitamin D3) 50 mcg PO Q OTHER DAY 01/17/20 01/17/20 History cranberry 400 mg PO DAILY 01/17/20 01/17/20 History cyanocobalamin (vitamin B-12) 100 mcg PO DAILY 01/17/20 01/17/20 History duloxetine 30 mg PO DAILY 01/17/20 01/17/20 History estradiol 1 mg PO DAILY 01/17/20 01/17/20 History fluticasone propionate [Flonase] 1 spray INTRANASAL DAILY PRN 01/17/20 01/17/20 History gabapentin 300 mg PO DAILY 01/17/20 01/17/20 History lul (Zingiber officinalis) 550 mg PO Q OTHER DAY 01/17/20 01/17/20 History lorazepam 1 mg PO BID PRN 01/17/20 01/17/20 History magnesium oxide 250 mg PO DAILY 01/17/20 01/17/20 History nabumetone 500 mg PO DAILY 01/17/20 01/17/20 History omeprazole 40 mg PO DAILY 01/17/20 01/17/20 History riboflavin (vitamin B2) 400 mg PO DAILY 01/17/20 01/17/20 History rizatriptan 10 mg PO UD PRN 01/17/20 01/17/20 History turmeric root extract 500 mg PO Q OTHER DAY 01/17/20 01/17/20 History vitamin E 400 unit PO Q OTHER DAY 01/17/20 01/17/20 History Past Med/Surg History Medical History Chronic fatigue Fibromyalgia Generalized osteoarthritis GERD without esophagitis Hx of migraines Surgical History History of partial hysterectomy Hx of lumbosacral spine surgery Family History Brother Leukemia Sister Melanoma Social History Smoking Status: Never smoker Hx Alcohol Use: Yes Alcohol Intake Frequency: Monthly or Less Feels Safe at Home: Yes Review of Systems Review of Systems: All systems reviewed & are unremarkable except as noted in HPI & below Constitutional: + chills, + fatigue and + anorexia; no fever Eyes: no diplopia Ear, Nose, Mouth, Throat: no nasal congestion, no nasal discharge, no sore throat and no dysphagia Respiratory: no cough, no chest congestion, no dyspnea and no wheezing Cardiovascular: + palpitations and + lightheadedness (related to severity of pain); no chest pain, no syncope and no edema Gastrointestinal: as per Subjective / HPI, + abdominal pain, + bloating and + nausea; no vomiting, no diarrhea/loose stools, no blood in stools and no melena Genitourinary: no dysuria, no urinary frequency, no urinary urgency and no hematuria Musculoskeletal: + back pain and + myalgia Integumentary: no rash and no change in skin color Neurologic: + headache(s); no unsteadiness, no generalized weakness, no paresthesia and no confusion Psychiatric: no depression and no anxiety Physical Exam Constitutional: WD/WN, vitals as above no acute distress Eyes: + anicteric sclerae; no conjunctival abnormality ENMT: external ear and nose normal, oropharynx normal Neck: trachea midline Respiratory: no respiratory distress and does not use accessory muscles Auscultation: lungs clear to auscultation bilaterally; no rales, no rhonchi and no wheezes Cardiovascular: Rate/Rhythm: regular rate and regular rhythm Heart Sounds: no gallop, no murmur and no cardiac rub Extremities: normal capillary refill; no calf tenderness and no pedal edema Gastrointestinal (Abdomen): Inspection/Auscultation: normal bowel sounds Percussion/Palpation: + abdomen tender (moderate epigastric and RUQ tenderness to light palpation) and abdomen soft +Nuno's sign Musculoskeletal: Head/Neck/Chest: normocephalic, head atraumatic and neck supple Extremities: no cyanosis and no clubbing Skin: no rashes, warm and dry no jaundice Neurologic: moves all extremities; no focal motor deficits Speech / Cognition: normal speech Psychiatric: A+Ox3, euthymic affect Results & Data Results & Data ([facility]) Vital Signs (Past 12 Hours) Vital Signs Temp Pulse Pulse Resp BP BP Pulse Ox 01/17/20 13:50 76 23 129/96 98 01/17/20 12:22 37.2 C 83 20 147/104 H 96 Laboratory Results Laboratory Results - last 24 hr 01/17/20 01/17/20 01/17/20 13:08 13:08 14:10 WBC 7.84 RBC 4.67 Hgb 14.6 Hct 42.4 MCV 90.8 MCH 31.3 MCHC 34.4 RDW Std Deviation 41.9 RDW Coeff of Darrin 12.7 Plt Count 256 MPV 8.9 Immature Gran % (Auto) 0.3 Neut % (Auto) 75.7 Lymph % (Auto) 17.5 [place] % (Auto) 5.1 Eos % (Auto) 1.0 Baso % (Auto) 0.4 Neut # (Auto) 5.94 Lymph # (Auto) 1.37 [place] # (Auto) 0.40 Eos # (Auto) 0.08 Baso # (Auto) 0.03 Immature Gran # (Auto) 0.02 Sodium 139 Potassium 3.9 Chloride 107 Carbon Dioxide 26 Anion Gap 6.0 BUN 16 Creatinine 0.93 Est Cr Clr Drug Dosing 81.0 Est GFR ( Amer) 82.5 Est GFR (Non-Af Amer) 71.2 BUN/Creatinine Ratio 17.4 Glucose 97 Calcium 9.4 Total Bilirubin 1.4 H AST 548 H ALT 480 H Alkaline Phosphatase 212 H Troponin I < 0.015 Total Protein 7.4 Albumin 3.4 Globulin 4.0 Albumin/Globulin Ratio 0.8 L Lipase 5864 H Urine Color Yellow Urine Appearance Clear Urine pH 7.5 Ur Specific [place] 1.007 Urine Protein Negative Urine Glucose (UA) Negative Urine Ketones Negative Urine Blood Negative Urine Nitrite Negative Urine Bilirubin Negative Urine Urobilinogen Negative Ur Leukocyte Esterase Negative Diagnostic Findings Chest X-ray 01/17/20 - IMPRESSION: Low lung volumes with bibasilar atelectasis. No acute findings. KUB 01/17/20 - IMPRESSION: A few prominent loops of small bowel within left mid abdomen without convincing evidence for a bowel obstruction. Biliary U/S 01/17/20 - IMPRESSION: 1. Cholelithiasis, borderline gallbladder wall thickening with mild gallbladder wall hyperemia. Technologist reported positive sonographic Nuno sign. Clinical correlation in regards to acute cholecystitis is recommended. A nuclear medicine hepatobiliary study could be obtained in follow-up to assess cystic duct patency as deemed clinically appropriate. 2. Hepatic steatosis Medications Administered Discontinued Medications Sodium Chloride (Nss 1000ml) 1,000 mls @ 999 mls/hr IV .Q1H1M YUE Stop: 01/17/20 13:45 Last Infusion: 01/17/20 14:05 Dose: 0 mls/hr Documented by: [id number] Admin: 01/17/20 13:14 Dose: 999 mls/hr Documented by: [id number] Famotidine (Pepcid 20mg Iv Push) 20 mg in 5 mls @ 2.5 mls/min IV NOW STA Stop: 01/17/20 14:38 Last Admin: 01/17/20 15:02 Dose: 2.5 mls/min Documented by: [id number] Pantoprazole Sodium 40 mg/ (Syringe) 10 mls @ 5 mls/min IV NOW ONE Stop: 01/17/20 14:38 Last Admin: 01/17/20 15:02 Dose: 5 mls/min Documented by: [id number] Cefoxitin Sodium (Mefoxin) 2,000 mg in 60 mls @ 100 mls/hr IV NOW STA Stop: 01/17/20 15:12 Last Admin: 01/17/20 15:02 Dose: 100 mls/hr Documented by: [id number] Ondansetron HCl (Ondansetron Inj 2 Mg/Ml 2 Ml Vial) 4 mg IV NOW STA Stop: 01/17/20 12:41 Last Admin: 01/17/20 13:13 Dose: 4 mg Documented by: [id number] Code Status & VTE Plan VTE Prophylaxis Plan VTE Prophylaxis will be ordered: Yes Supervising Physician Co-Signing Physician Notes Attending addendum: The patient was seen and examined in emergency room She has been complaining of epigastric pain following food radiation to the back and also to the right shoulder Denies any fever and/or chills Nausea without vomiting On examination Lying in bed with some abdominal discomfort Febrile and hemodynamically stable with blood pressure on the upper side at 162/88 Chest-left was patent bilaterally Heart-S1-S2, regular Abdomen-mildly distended, tender in upper quadrants with a positive Nuno sign Extremity-trace edema bilaterally Admission labs and imaging studies reviewed Has acute cholecystitis and gallstone pancreatitis Surgery and GI has been consulted Agree with assessment plan as outlined above by VINNIE Ward Dr (1) Biliary acute pancreatitis Acute pancreatitis complication: unspecified Qualified Code(s): K85.10 - Biliary acute pancreatitis without necrosis or infection (2) Nonintractable migraine Migraine type: unspecified Status migrainosus presence: without status migrainosus Qualified Code(s): G43.909 - Migraine, unspecified, not intractable, without status migrainosus
[2020-01-17] MEDS: D5W AND NSS 1,000 ML IV SCH (19:09)
[2020-01-17] MEDS ORDERED: RIZATRIPTAN BENZOATE 10 MG TAB PO PRN (19:30)
[2020-01-17] MEDS: KETOROLAC 30 MG/ML VIAL IV PRN (20:04)
[2020-01-17] MEDS ORDERED: ACETAMINOPHEN 1000 MG/100 ML IV IV PRN (20:22)
[2020-01-17] MEDS: ONDANSETRON INJ 2 MG/ML 2 ML VIAL IV PRN (20:28)
[2020-01-17] MEDS: HEPARIN SOD 5,000 UNIT/0.5 ML VIAL SQ SCH (21:32)
[2020-01-18] MEDS: D5W AND NSS 1,000 ML IV SCH ×2 (01:58→09:45)
[2020-01-18] MEDS: KETOROLAC 30 MG/ML VIAL IV PRN ×2 (03:05→09:41)
[2020-01-18] MEDS: HEPARIN SOD 5,000 UNIT/0.5 ML VIAL SQ SCH (06:23)
[2020-01-18] MEDS ORDERED: INDOMETHACIN 50 MG SUPP PR ONE (07:18)
[2020-01-18 08:43] LABS: Basophils # (auto) 0.03 K/uL (0-0.2); Basophils % (auto) 0.5 %; Eosinophils # (auto) 0.17 K/uL (0-0.5); Eosinophils % (auto) 2.6 %; Hematocrit (blood only) 40.9 % (37-47); Hemoglobin 13.3 g/dL (12.0-16.0); Immature Granulocytes # (auto) 0.02 K/uL (0.00-0.02); Immature Granulocytes % (auto) 0.3 %; Lymphocytes # (auto) 1.58 K/uL (1.2-3.4); Lymphocytes % (auto) 24.1 %; Mean Corpuscular Hemoglobin 30.8 pg (25-34); Mean Corpuscular Hgb Conc 32.5 g/dL (32-36); Mean Corpuscular Volume 94.7 fL (80-100); Monocytes # (auto) 0.41 K/uL (0.11-0.59); Monocytes % (auto) 6.3 %; Neutrophils # (auto) 4.35 K/uL (1.4-6.5); Neutrophils % (auto) 66.2 %; Platelet Count 196 K/uL (130-400); RDW Standard Deviation 44.8 fL (36.4-46.3); Red Blood Count 4.32 M/uL (4.2-5.4); White Blood Count 6.56 K/uL (4.8-10.8)
[2020-01-18 09:06] LABS: Albumin Level 2.9 gm/dl (3.4-5.0); BUN Creatinine Ratio 11.5 (10-20); Bilirubin Direct 0.2 mg/dl (0-0.2); Bilirubin,Total 0.6 mg/dl (0.2-1); Calcium 8.9 mg/dl (8.5-10.1); Creatinine Clr Calc Pharmacy 97.7 ml/min; Est GFR (African American) 103.6; Est GFR (Non-African American) 89.4; Potassium 3.6 mmol/L (3.5-5.1); Total Protein 6.8 gm/dl (6.4-8.2)
--- NOTE | 2020-01-18 09:10 | Surgery Progress Note ---
Date of Service January 18, 2020 Assessment & Plan (1) Acute gallstone pancreatitis: labs pending plan for ERCP today will decide on timing of lap esther Admission and Anticipated Discharge Date Admission Date: January 17, 2020 Supervising Physician Co-Signing Physician Notes Patient seen and examined, labs reviewed, agree with above. Admitted with choledocholithiasis and gallstone pancreatitis. Overnight she was doing well but during the day she has had increasing pain along with the development of a migraine headache. She is also having nausea and was vomiting upon entering the room. On exam she is afebrile, currently in distress due to nausea and vomiting. Her abdomen is soft, tender to palpation in the epigastrium but improved from yesterday. LFTs are downtrending with a normal bilirubin and the lipase is downtrending as well. She is planned for an ERCP/EUS today. We will plan on laparoscopic cholecystectomy possible cholangiogram tomorrow, depending upon her symptoms. The risks of the procedure were discussed to include but not limited to bleeding, infection, retained stone, bile leak, damage surrounding structures including common bile duct, conversion open, need for future or more extensive surgery, and the risk of anesthesia. Subjective some epigastric pain, scant flatus Physical Exam Gastrointestinal (Abdomen): Percussion/Palpation: + abdomen tender (mild epigastric) and abdomen soft Results & Data ([facility]) Vital Signs (Past 12 Hours) Vital Signs Temp Pulse Pulse Resp BP Pulse Ox 01/18/20 07:00 36.6 C 71 18 112/77 96 01/17/20 23:00 37.2 C 81 20 108/71 94 01/17/20 22:20 77 PG Care Time/CCT Total # of Minutes Spent Total Time Spent with Patient: Total time spent is greater than 50% in coordination of care (as documented) at patient's floor/unit and/or counseling patient: Coding Level of Care Code 00497 Subseq Hosp Care Lvl 1 Diagnoses Acute gallstone pancreatitis K85.10
--- NOTE | 2020-01-18 09:29 | Gastrointestinal Consultation ---
Date of Consultation January 18, 2020 Assessment & Plan (1) Acute gallstone pancreatitis: (2) Acute cholecystitis: Pt is a 49 y/o female admitted with suspected gallstone pancreatitis, w cholecystitis. - Keep NPO for EUS/ERCP in OR by Dr. Green today. Send Indomethacin 100mg AZ to OR holding to be given as ERCP pre med - LR IVF @ 125ml/hr - Surgery consulted for possible cholecystectomy - Trend LFTs - Symptomatic management w antiemetics and analgesic otherwise Supervising Physician Co-Signing Physician Notes I performed a history and physical examination of the patient today, including specifically on physical exam - soft abdomen. I have discussed the patient's management with the advanced practitioner. Please refer to the nurse practitioner's note for the documented findings and plan of care. EUS/ERCP History of Present Illness Reason for Consultation: Pancreatitis Requesting Physician: Dr. Cecilia Bay Attending Physician: Dr. Jhonny Green History of Present Illness Pt is a 49 y/o female who presented w upper abd pain and nausea x 2 days. Started 2 days ago after eating breakfast sandwich. Had intermitted epigastric pain before after eating Strawberries but this time pain lasted longer across upper abd and radiating to back. She denies any fever, chills, CP, SOB, bowel habit changes, jaundice. Upon eval, noted to have elevated LFTs and lipase. Gallbladder u/s showed signs of cholelithiasis, borderline gallbladder wall thickening with mild gallbladder wall hyperemia, hepatic steatosis. CBD 6mm. She also has + Nuno sign. Pt denies NSAIDs, ETOH, tobacco, illicit drugs. Denies family hx of hepatobiliary dz, colorectal ca Never had EGD. Colonoscopy 2019 normal. Allergies Allergy/AdvReac Type Severity Reaction Status Date / Time Sulfa (Sulfonamide Allergy Severe HIVES, Unverified 06/04/16 11:02 Antibiotics) FEVER morphine Allergy Intermediate HIVES, Unverified 06/04/16 11:02 SWELLING, FEVER, NAUSEA Penicillins Allergy Intermediate HIVES, Unverified 06/04/16 11:02 SWELLING Home Medications Home Medications Medication Instructions Recorded Confirmed Type cetirizine 10 mg PO DAILY 01/17/20 01/17/20 History cholecalciferol (vitamin D3) 50 mcg PO Q OTHER DAY 01/17/20 01/17/20 History cranberry 400 mg PO DAILY 01/17/20 01/17/20 History cyanocobalamin (vitamin B-12) 100 mcg PO DAILY 01/17/20 01/17/20 History duloxetine 30 mg PO DAILY 01/17/20 01/17/20 History estradiol 1 mg PO DAILY 01/17/20 01/17/20 History fluticasone propionate [Flonase] 1 spray INTRANASAL DAILY PRN 01/17/20 01/17/20 History gabapentin 300 mg PO DAILY 01/17/20 01/17/20 History lul (Zingiber officinalis) 550 mg PO Q OTHER DAY 01/17/20 01/17/20 History lorazepam 1 mg PO BID PRN 01/17/20 01/17/20 History magnesium oxide 250 mg PO DAILY 01/17/20 01/17/20 History nabumetone 500 mg PO DAILY 01/17/20 01/17/20 History omeprazole 40 mg PO DAILY 01/17/20 01/17/20 History riboflavin (vitamin B2) 400 mg PO DAILY 01/17/20 01/17/20 History rizatriptan 10 mg PO UD PRN 01/17/20 01/17/20 History turmeric root extract 500 mg PO Q OTHER DAY 01/17/20 01/17/20 History vitamin E 400 unit PO Q OTHER DAY 01/17/20 01/17/20 History Patient History Medical History Chronic fatigue Fibromyalgia Generalized osteoarthritis GERD without esophagitis Hx of migraines Surgical History History of partial hysterectomy Hx of lumbosacral spine surgery Family History Brother Leukemia Sister Melanoma Social History Smoking Status: Never smoker Hx Alcohol Use: No Hx Substance Use: No 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 Beliefs That Will Affect Care: None Current Living Situation: Spouse Feels Safe at Home: Yes Review of Systems Review of Systems: All systems reviewed & are unremarkable except as noted in HPI & below Physical Exam Constitutional: WD/WN, vitals as above well groomed, cooperative and comfortable Eyes: PERRL, conjunctivae normal, anicteric sclerae ENMT: external ear and nose normal, oropharynx normal Respiratory: normal respiratory effort, lungs clear to auscultation Cardiovascular: RRR, no murmur, no edema Gastrointestinal (Abdomen): Inspection/Auscultation: + hypoactive bowel sounds Percussion/Palpation: + abdomen tender (LUQ, RUQ) and abdomen soft Skin: no rashes, warm and dry no jaundice Psychiatric: A+Ox3, euthymic affect Lymphatic: no lymphedema Results & Data ([facility]) Vital Signs (Past 12 Hours) Vital Signs Temp Pulse Pulse Resp BP Pulse Ox 01/18/20 07:00 36.6 C 71 18 112/77 96 01/17/20 23:00 37.2 C 81 20 108/71 94 01/17/20 22:20 77
[2020-01-18] MEDS: LACTATED RINGER'S 1,000 ML IV SCH ×2 (09:41→17:24)
[2020-01-18] MEDS: ONDANSETRON INJ 2 MG/ML 2 ML VIAL IV PRN (09:48)
[2020-01-18] MEDS: PANTOprazole 40 MG in SYRINGE 0 ML IV SCH (12:07)
[2020-01-18] MEDS: GABAPENTIN 300 MG CAP PO SCH (12:47)
[2020-01-18] MEDS: DULoxetine HCL 30 MG CAP PO SCH (12:47)
[2020-01-18] MEDS ORDERED: HYDROmorphone INJ 1 MG/ML SYRINGE IV STA (14:25)
[2020-01-18] MEDS ORDERED: PROMETHAZINE HCL 12.5 MG in SODIUM CHLORIDE 0.9% 50 ML IV STA (15:05)
[2020-01-18] MEDS ORDERED: PROMETHAZINE HCL 12.5 MG in SODIUM CHLORIDE 0.9% 50 ML IV PRN (15:39)
[2020-01-18] MEDS ORDERED: ONDANSETRON INJ 2 MG/ML 2 ML VIAL IV PRN ×2 (15:39→18:34)
--- NOTE | 2020-01-18 18:13 | Anesthesiology Consultation ---
Date of Service January 18, 2020 Assessment & Plan Chart Review Chart Review: Acceptable Risk for Surgery Consults Requested none History Surgery Operation Date: 01/18/20 12:55 Proposed Procedures p Upper Endoscopic Ultrasonography - Jhonny Green MD s Endoscopic Retrograde Cholangiopancreatogram - Jhonny Green MD Operation Date: 01/19/20 08:20 Proposed Procedures p Laparoscopic Cholecystectomy - Donovan Sheldon, DO, FACS Height/Weight Height: 5 ft 4 in Weight: 97 kg Allergies Allergy/AdvReac Type Severity Reaction Status Date / Time Sulfa (Sulfonamide Allergy Severe HIVES, Unverified 06/04/16 11:02 Antibiotics) FEVER morphine Allergy Intermediate HIVES, Unverified 06/04/16 11:02 SWELLING, FEVER, NAUSEA Penicillins Allergy Intermediate HIVES, Unverified 06/04/16 11:02 SWELLING Medications Home Medications Medication Instructions Recorded Confirmed Last Taken cetirizine 10 mg PO DAILY 01/17/20 01/17/20 01/16/20 cholecalciferol (vitamin D3) 50 mcg PO Q OTHER DAY 01/17/20 01/17/20 Unknown cranberry 400 mg PO DAILY 01/17/20 01/17/20 01/16/20 cyanocobalamin (vitamin B-12) 100 mcg PO DAILY 01/17/20 01/17/20 01/16/20 duloxetine 30 mg PO DAILY 01/17/20 01/17/20 01/16/20 estradiol 1 mg PO DAILY 01/17/20 01/17/20 01/16/20 fluticasone propionate [Flonase] 1 spray INTRANASAL DAILY PRN 01/17/20 01/17/20 Unknown gabapentin 300 mg PO DAILY 01/17/20 01/17/20 01/16/20 lul (Zingiber officinalis) 550 mg PO Q OTHER DAY 01/17/20 01/17/20 Unknown lorazepam 1 mg PO BID PRN 01/17/20 01/17/20 Unknown magnesium oxide 250 mg PO DAILY 01/17/20 01/17/20 01/16/20 nabumetone 500 mg PO DAILY 01/17/20 01/17/20 01/16/20 omeprazole 40 mg PO DAILY 01/17/20 01/17/20 01/16/20 riboflavin (vitamin B2) 400 mg PO DAILY 01/17/20 01/17/20 01/16/20 rizatriptan 10 mg PO UD PRN 01/17/20 01/17/20 Unknown turmeric root extract 500 mg PO Q OTHER DAY 01/17/20 01/17/20 Unknown vitamin E 400 unit PO Q OTHER DAY 01/17/20 01/17/20 Unknown Active Medications Generic Name Dose Route Start Last Admin Trade Name Freq PRN Reason Stop Dose Admin Acetaminophen 1,000 mg 01/17/20 20:22 01/17/20 21:32 Acetaminophen 1000 Mg/100 Ml Iv IV 01/20/20 20:21 1,000 mg Q8H PRN Administration Headache or Pain Duloxetine HCl 30 mg 01/18/20 09:00 01/18/20 12:47 Duloxetine Hcl 30 Mg Cap PO 02/17/20 08:59 Not Given DAILY YUE Gabapentin 300 mg 01/18/20 09:00 01/18/20 12:47 Gabapentin 300 Mg Cap PO 02/17/20 08:59 Not Given DAILY YUE Heparin Sodium (Porcine) 5,000 units 01/17/20 22:00 01/18/20 06:23 Heparin Sod 5,000 Unit/0.5 Ml Vial SQ 02/16/20 21:59 5,000 units Q8 YUE Administration Pantoprazole Sodium 40 mg/ 10 mls @ 5 mls/min 01/18/20 11:00 01/18/20 12:07 Syringe IV 02/17/20 10:59 5 mls/min DAILY@1100 YUE Administration Cefoxitin Sodium 1,000 mg/ 60 mls @ 100 mls/hr 01/17/20 20:00 01/18/20 15:24 Dextrose IV 01/27/20 19:59 Infused Q6H YUE Infusion Lactated Ringer's 1,000 mls @ 150 mls/hr 01/18/20 09:30 01/18/20 17:24 Lr IV 02/17/20 09:29 150 mls/hr .Q6H40M YUE Administration Ketorolac Tromethamine 30 mg 01/17/20 19:30 01/18/20 09:41 Ketorolac 30 Mg/Ml Vial IV 01/22/20 19:29 30 mg Q6H PRN Administration Pain Ondansetron HCl 4 mg 01/17/20 18:52 01/18/20 09:48 Ondansetron Inj 2 Mg/Ml 2 Ml Vial IV 02/16/20 18:51 4 mg Q6H PRN Administration Nausea NPO Date Last Intake of Fluids: 01/17/20 Time Last Intake of Fluids: 08:00 Date Last Intake of Solids: 01/16/20 Time Last Intake of Solids: 23:00 Past Medical History Medical History Chronic fatigue Fibromyalgia Generalized osteoarthritis GERD without esophagitis Hx of migraines Past Family History Family History Brother Leukemia Sister Melanoma Past Surgical History Surgical History History of partial hysterectomy Hx of lumbosacral spine surgery Social History Smoking Status: Never smoker Hx Alcohol Use: No Hx Substance Use: No Physical Exam Vital Signs Last Vital Signs Temp 36.5 C 01/18/20 15:27 Pulse 80 01/18/20 15:30 Resp 20 01/18/20 15:27 BP 136/89 01/18/20 15:27 Pulse Ox 94 01/18/20 15:27 Testing Laboratory Results 01/18/20 08:14 01/18/20 08:14 Urine Color Yellow 01/17/20 14:10 Urine Appearance Clear (Clear) 01/17/20 14:10 Urine pH 7.5 (4.5-7.5) 01/17/20 14:10 Ur Specific [place] 1.007 (1.000-1.030) 01/17/20 14:10 Urine Protein Negative (Negative) 01/17/20 14:10 Urine Glucose (UA) Negative (Negative) 01/17/20 14:10 Urine Ketones Negative (Negative) 01/17/20 14:10 Urine Nitrite Negative (Negative) 01/17/20 14:10 Ur Leukocyte Esterase Negative (Negative) 01/17/20 14:10
[2020-01-18] MEDS ORDERED: IOVERSOL 50ml IV ONE (18:23)
[2020-01-18] MEDS ORDERED: LABETALOL HCL IV 5 MG/ML 20ML IV PRN (18:34)
[2020-01-18] MEDS ORDERED: ATROPINE SULFATE 0.1 MG/ML 10ML SYR IV PRN (18:34)
[2020-01-18] MEDS ORDERED: fentaNYL citrate 100 MCG/2 ML VIAL IV PRN (18:34)
[2020-01-18] MEDS ORDERED: PROPOFOL IV EMULSION 10 MG/ML 20 ML VIAL IV ONE ×2 (18:38→19:08)
[2020-01-18] MEDS ORDERED: ONDANSETRON INJ 2 MG/ML 2 ML VIAL ONE (18:38)
[2020-01-18] MEDS ORDERED: MIDAZOLAM HCL 1 MG/ML 2ML VIAL ONE (18:38)
[2020-01-18] MEDS ORDERED: LIDOCAINE HCL 2% 2 ML VIAL/AMP(20MG/ML) INFIL ONE (18:38)
[2020-01-18] MEDS ORDERED: fentaNYL citrate 100 MCG/2 ML VIAL ONE ×2 (18:38→18:58)
[2020-01-18] MEDS ORDERED: DEXAMETHASONE SOD INJ 4 MG/ML VIAL ONE (18:38)
[2020-01-18] MEDS ORDERED: LARYING-O-JET KIT (LTA) ONE (19:08)
[2020-01-18] MEDS ORDERED: ROCURONIUM BROMIDE 10 MG/ML 5 ML VIAL IV ONE (19:08)
[2020-01-18] MEDS ORDERED: SUCCINYLCHOLINE CHLORIDE 20 MG/ML 10 ML VIAL IV ONE (19:08)
[2020-01-18] MEDS: INDOMETHACIN 50 MG SUPP PR ONE ×2 (19:58→20:00)
--- NOTE | 2020-01-18 19:59 | Operative Report ---
Post Operative Report Pre & Post Diagnosis Operation Date: 01/18/20 12:55 Pre-Op Diagnosis: Acute gallstone pancreatitis; Acute cholecystitis; Choledococholelithiasis Post-Op Diagnosis: Acute gallstone pancreatitis; Acute cholecystitis; Choledococholelithiasis Operation Date: 01/19/20 08:20 <No data on this case meets the specified criteria> I identified the patient and participated in the time-out.: Yes Procedure Operation Date: 01/18/20 12:55 Actual Procedures p Upper Endoscopic Ultrasonography(Not Applicable) - Jhonny Green MD s Endoscopic Retrograde Cholangiopancreatogram(Not Applicable) - Jhonny Green MD Operation Date: 01/19/20 08:20 <No data on this case meets the specified criteria> Surgeon Johnny Green MD Special Education Itinerant Teacher None Estimated Blood Loss 0 Findings See Below (EUS showed sludge in the CBD with no obstructive stone) Specimens None Description of Procedure EUS/ERCP I attest to the content of the Intraoperative Record and any orders documented therein. Any exceptions are noted below.
--- NOTE | 2020-01-18 20:08 | Fluoroscopy Report ---
[place] ERCP biliary ductal CLINICAL HISTORY: ERCP/EUS COMPARISON STUDY: Right upper quadrant ultrasound January 17, 2020. FLUOROSCOPY TIME: 13 seconds. FLUOROSCOPIC IMAGES: 0. FINDINGS: Fluoroscopy was provided during ERCP. No fluoroscopic images were submitted for interpretat ion. IMPRESSION: Fluoroscopy provided during ERCP. No fluoroscopic images submitted. ACT 112: Negative or not required by law. Electronically signed by: Ayan Umanzor M.D. 01/18/2020 8:07 PM
--- NOTE | 2020-01-18 20:30 | Hospitalist Progress Note ---
Date of Service January 18, 2020 Assessment & Plan (1) Biliary acute pancreatitis: present on admission with worsening abdominal pain associated with N/V Lipase on admission 5K Elevated liver enzymes Gallbladder u/s showed cholelithiasis, borderline gallbladder wall thickening with mild gallbladder wall hyperemia Gastro on board Continue IVF, Lipase improved to 1K Keep NPO for EUS/ERCP in OR by Dr. Green today Continue pain control and antiemetic Surgery on board Will need lap chol Continue monitor closely (2) Transaminitis: AST 548 and ALT 480 and ALK 212 on admission Liver enzymes improved today with AST 211, ALT 337 and ALK 190 Plan for ERCP today Continue monitor LFT (3) GERD without esophagitis: Continue PPI therapy (4) Nonintractable migraine: Holding supplements while NPO Will continue riboflavin and mag oxide once able to tolerate PO Continue Maxalt prn (5) Fibromyalgia: Continue Cymbalta and gabapentin Admission and Anticipated Discharge Date Admission Date: January 17, 2020 Subjective Pt was seen and examined Lying in bed with no distress Pt said that she continue to have abdominal pain She said that the toradol only provides minimal relief She said that she is having severe migraine She tried the dilaudid IV and said that seems to help, but vomiting after receiving Denies any chest pain, palpitation and SOB Physical Exam Physical Exam: General- No acute distress Head- atraumatic Eyes- PERRL, EOMI, ENT- oropharynx clear Neck- supple, no JVD Lungs- clear to auscultation Heart- regular rhythm; no murmur Abdomen- +hypoactive bowel sound +tenderness Extremities- no calf tenderness Neuro- alert, oriented x 3; PERRL, EOMI; no facial palsy; no dysarthria Skin- warm & dry Results & Data Results & Data ([facility]) Vital Signs (Past 12 Hours) Vital Signs Temp Pulse Pulse Resp BP Pulse Ox 01/18/20 18:21 36.9 C 87 16 141/80 H 98 01/18/20 15:30 80 01/18/20 15:27 36.5 C 85 20 136/89 94 01/18/20 11:00 36.8 C 72 18 128/84 97 01/18/20 09:00 64 (1) Biliary acute pancreatitis Acute pancreatitis complication: unspecified Qualified Code(s): K85.10 - Biliary acute pancreatitis without necrosis or infection (2) Nonintractable migraine Migraine type: unspecified Status migrainosus presence: without status migrainosus Qualified Code(s): G43.909 - Migraine, unspecified, not intractable, without status migrainosus
--- NOTE | 2020-01-18 20:36 | Anesthesiology Progress Note ---
Date of Service January 18, 2020 Anesthesia Post Procedure Vital Signs Vital Signs: Temp Pulse Pulse Pulse Resp BP Pulse Ox 01/18/20 20:30 90 15 155/81 H 96 01/18/20 20:20 101 H 17 137/73 96 01/18/20 20:12 36.6 C 101 H 16 146/90 H 97 01/18/20 18:21 36.9 C 87 16 141/80 H 98 01/18/20 15:30 80 01/18/20 15:27 36.5 C 85 20 136/89 94 01/18/20 11:00 36.8 C 72 18 128/84 97 01/18/20 09:00 64 01/18/20 07:00 36.6 C 71 18 112/77 96 01/17/20 23:00 37.2 C 81 20 108/71 94 01/17/20 22:20 77 Pain Intensity Bilateral Abdomen: Pain Intensity: 5 Transfer of Care Handoff Completed per policy Notes Mental Status: alert / awake / arousable Patient Amnestic to Procedure: Yes Nausea / Vomiting: adequately controlled Pain: adequately controlled Airway Patency, RR, SpO2: stable & adequate BP & HR: stable & adequate Hydration State: stable & adequate Anesthetic Complications: no major complications apparent
[2020-01-18] MEDS ORDERED: GLUCAGON FOR INJ 1 MG VIAL ONE (20:37)
--- NOTE | 2020-01-18 21:45 | Gastroenterology Progress Note ---
Date of Service January 18, 2020 Assessment & Plan Admission and Anticipated Discharge Date Admission Date: January 17, 2020 Subjective Patient underwent EUS/ERCP, tolerated well, CBD diameter measured 6 mm. No stone seen however there was some sludge in the duct. ERCP attempted however could not cannulate the bile duct despite precut sphincterotomy, there was minor post sphincterotomy bleeding which stopped after injecting Epi. Spoke to from surgery and he can proceed with Lap esther tomorrow as scheduled however I recommend an IOC to clarify her bile duct sludge. If IOC shows any filling defects then I will plan for EUS guided biliary access (rendezvous). Results & Data ([facility]) Vital Signs (Past 12 Hours) Vital Signs Temp Pulse Pulse Pulse Resp BP Pulse Ox 01/18/20 20:48 36.8 C 86 15 138/72 94 01/18/20 20:40 36.8 C 86 15 143/83 H 94 01/18/20 20:30 90 15 155/81 H 96 01/18/20 20:20 101 H 17 137/73 96 01/18/20 20:12 36.6 C 101 H 16 146/90 H 97 01/18/20 18:21 36.9 C 87 16 141/80 H 98 01/18/20 15:30 80 01/18/20 15:27 36.5 C 85 20 136/89 94 01/18/20 11:00 36.8 C 72 18 128/84 97
[2020-01-19] MEDS: LACTATED RINGER'S 1,000 ML IV SCH ×3 (00:57→13:33)
--- NOTE | 2020-01-19 07:26 | Anesthesiology Consultation ---
Date of Service January 19, 2020 Assessment & Plan (1) Encounter for pre-operative examination: Chart Review Chart Review: Acceptable Risk for Surgery Consults Requested none ASA ASA2 Proposed Anesthesia Anesthesia Type: General Risk / Benefits Reviewed With: PT / POA / Parent / Guardian, Accepts Plan and Informed Consent Obtained History Surgery Operation Date: 01/18/20 12:55 Proposed Procedures p Upper Endoscopic Ultrasonography - Jhonny Green MD s Endoscopic Retrograde Cholangiopancreatogram - Jhonny Green MD Operation Date: 01/19/20 07:00 Proposed Procedures p Laparoscopic Cholecystectomy - Donovan Sheldon DO, FACS Height/Weight Height: 5 ft 4 in Weight: 95.9 kg Allergies Allergy/AdvReac Type Severity Reaction Status Date / Time Sulfa (Sulfonamide Allergy Severe HIVES, Unverified 06/04/16 11:02 Antibiotics) FEVER morphine Allergy Intermediate HIVES, Unverified 06/04/16 11:02 SWELLING, FEVER, NAUSEA Penicillins Allergy Intermediate HIVES, Unverified 06/04/16 11:02 SWELLING Medications Home Medications Medication Instructions Recorded Confirmed Last Taken cetirizine 10 mg PO DAILY 01/17/20 01/17/20 01/16/20 cholecalciferol (vitamin D3) 50 mcg PO Q OTHER DAY 01/17/20 01/17/20 Unknown cranberry 400 mg PO DAILY 01/17/20 01/17/20 01/16/20 cyanocobalamin (vitamin B-12) 100 mcg PO DAILY 01/17/20 01/17/20 01/16/20 duloxetine 30 mg PO DAILY 01/17/20 01/17/20 01/16/20 estradiol 1 mg PO DAILY 01/17/20 01/17/20 01/16/20 fluticasone propionate [Flonase] 1 spray INTRANASAL DAILY PRN 01/17/20 01/17/20 Unknown gabapentin 300 mg PO DAILY 01/17/20 01/17/20 01/16/20 lul (Zingiber officinalis) 550 mg PO Q OTHER DAY 01/17/20 01/17/20 Unknown lorazepam 1 mg PO BID PRN 01/17/20 01/17/20 Unknown magnesium oxide 250 mg PO DAILY 01/17/20 01/17/20 01/16/20 nabumetone 500 mg PO DAILY 1001/17/20 01/16/20 omeprazole 40 mg PO DAILY 01/17/20 01/17/20 01/16/20 riboflavin (vitamin B2) 400 mg PO DAILY 01/17/20 01/17/20 01/16/20 rizatriptan 10 mg PO UD PRN 01/17/20 01/17/20 Unknown turmeric root extract 500 mg PO Q OTHER DAY 01/17/20 01/17/20 Unknown vitamin E 400 unit PO Q OTHER DAY 01/17/20 01/17/20 Unknown Active Medications Generic Name Dose Route Start Last Admin Trade Name Freq PRN Reason Stop Dose Admin Acetaminophen 1,000 mg 01/17/20 20:22 01/17/20 21:32 Acetaminophen 1000 Mg/100 Ml Iv IV 01/20/20 20:21 1,000 mg Q8H PRN Administration Headache or Pain Duloxetine HCl 30 mg 01/18/20 09:00 01/19/20 08:34 Duloxetine Hcl 30 Mg Cap PO 02/17/20 08:59 Not Given DAILY YUE Gabapentin 300 mg 01/18/20 09:00 01/19/20 08:34 Gabapentin 300 Mg Cap PO 02/17/20 08:59 Not Given DAILY YUE Heparin Sodium (Porcine) 5,000 units 01/17/20 22:00 01/18/20 06:23 Heparin Sod 5,000 Unit/0.5 Ml Vial SQ 02/16/20 21:59 5,000 units Q8 YUE Administration Pantoprazole Sodium 40 mg/ 10 mls @ 5 mls/min 01/18/20 11:00 01/18/20 12:07 Syringe IV 02/17/20 10:59 5 mls/min DAILY@1100 YUE Administration Cefoxitin Sodium 1,000 mg/ 60 mls @ 100 mls/hr 01/17/20 20:00 01/19/20 08:31 Dextrose IV 01/27/20 19:59 Infused Q6H YUE Infusion Lactated Ringer's 1,000 mls @ 100 mls/hr 01/18/20 09:30 01/19/20 09:49 Lr IV 02/17/20 09:29 100 mls/hr .Q10H YUE Infusion Ketorolac Tromethamine 30 mg 01/17/20 19:30 01/18/20 09:41 Ketorolac 30 Mg/Ml Vial IV 01/22/20 19:29 30 mg Q6H PRN Administration Pain Ondansetron HCl 4 mg 01/17/20 18:52 01/18/20 09:48 Ondansetron Inj 2 Mg/Ml 2 Ml Vial IV 02/16/20 18:51 4 mg Q6H PRN Administration Nausea NPO Date Last Intake of Fluids: 01/17/20 Time Last Intake of Fluids: 08:00 Date Last Intake of Solids: 01/16/20 Time Last Intake of Solids: 23:00 Past Medical History Medical History Chronic fatigue Fibromyalgia Generalized osteoarthritis GERD without esophagitis Hx of migraines Exercise / Class Metabolic Activity II 4-5 Yardwork/Stairs/Walk up hill Past Family History Family History Brother Leukemia Sister Melanoma Past Surgical History Surgical History History of partial hysterectomy Hx of lumbosacral spine surgery Past Anesthesia History No Hx of Anesthesia Complications and No Family Hx of Anesthesia Complications History of PONV No Hx of PONV and No Hx of Motion Sickness Social History Smoking Status: Never smoker Hx Alcohol Use: No Hx Substance Use: No Physical Exam Vital Signs Last Vital Signs Temp 98.2 F 01/19/20 08:00 Pulse 76 01/19/20 08:00 Resp 18 01/19/20 08:00 BP 115/76 01/19/20 08:00 Pulse Ox 95 01/19/20 08:00 ENMT Mouth: no dentition abnormality Thyromental Distance: > or= 3.5 Finger Breadths Mallampati Class: II Neck normal visual inspection Respiratory normal respiratory effort Auscultation: lungs clear to auscultation bilaterally Cardiovascular Rate/Rhythm: regular rate and regular rhythm Testing Laboratory Results 01/18/20 08:14 01/19/20 07:25 Urine Color Yellow 01/17/20 14:10 Urine Appearance Clear (Clear) 01/17/20 14:10 Urine pH 7.5 (4.5-7.5) 01/17/20 14:10 Ur Specific [place] 1.007 (1.000-1.030) 01/17/20 14:10 Urine Protein Negative (Negative) 01/17/20 14:10 Urine Glucose (UA) Negative (Negative) 01/17/20 14:10 Urine Ketones Negative (Negative) 01/17/20 14:10 Urine Nitrite Negative (Negative) 01/17/20 14:10 Ur Leukocyte Esterase Negative (Negative) 01/17/20 14:10 Electrocardiogram Date: 01/17/20 Findings: + NSR @ (75 bpm) Chest X-Ray Date: 01/17/20 IMPRESSION: Low lung volumes with bibasilar atelectasis. No acute findings.
--- NOTE | 2020-01-19 07:43 | GI REPORT ---
Patient Name: Claudette Peters Procedure Date: 01/18/2020 6:34 PM Date of : 1970 Admit Type: Inpatient Age: 49 Gender: Female Attending MD: Jhonny Green MD Procedure: ERCP Providers: Jhonny Green MD Referring MD: Donovan ALY Do Indications: Elevated liver enzymes, Biliary sludge Medicines: General Anesthesia Complications: No immediate complications. Estimated Blood Loss: Estimated blood loss: none. Procedure: Pre-Anesthesia Assessment: - Prior to the procedure, a History and Physical was performed, and patient medications, allergies and sensitivities were reviewed. The patient's tolerance of previous anesthesia was reviewed. - The risks and benefits of the procedure and the sedation options and risks were discussed with the patient. All questions were answered and informed consent was obtained. - Patient identification and proposed procedure were verified prior to the procedure by the physician and the nurse. The procedure was verified in the procedure room. - Pre-procedure physical examination revealed no contraindications to sedation. After obtaining informed consent, the scope was passed under direct vision. Throughout the procedure, the patient's blood pressure, pulse, and oxygen saturations were monitored continuously. The Scope was introduced through the mouth, and advanced to the duodenum without successful cannulation. The ERCP was technically difficult and complex due to challenging cannulation. The patient tolerated the procedure well. Findings: The marine fisheries technician film was normal. The esophagus was successfully intubated under direct vision. The scope was advanced to a normal major papilla in the descending duodenum without detailed examination of the pharynx, larynx and associated structures, and upper GI tract. The upper GI tract was grossly normal. The major papilla was very floppy and extended over two folds. The bile duct could not be cannulated with the short-nosed traction sphincterotome. A biliary pre-cut sphincterotomy was made with a monofilament needle knife using a freehand technique using ERBE electrocautery. Minor bleeding from the sphincterotomy was successfully treated. Area was successfully injected with 10 mL of a 1:10,000 solution of epinephrine through the ERCP scope for hemostasis. At this point, the procedure was aborted. Impression: - Failed biliary ductal cannulation, ERCP was technically difficult due to challenging cannulation despite attempting free hand precut sphincterotomy. Recommendation: - Return patient to hospital hart for ongoing care. - Discussed with Surgeon, he can proceed with Lap Coral tomorrow but would prefer an IOC to be done. If IOC shows a filling defect then will repeat ERCP utilizing an EUS guided biliary access (nettie). - Monitor LFTs. Jhonny Green MD 01/19/2020 7:43:13 AM This report has been signed electronically. Note Initiated On: 01/18/2020 6:34 PM Number of Addenda: 0 I attest to the content of the Intraoperative Record and orders documented therein, exceptions below {[id number]}
--- NOTE | 2020-01-19 07:47 | GI REPORT ---
Patient Name: Claudette Peters Procedure Date: 01/18/2020 6:36 PM Date of : 1970 Admit Type: Inpatient Age: 49 Gender: Female Attending MD: Jhonny Green MD Procedure: Upper EUS Providers: Jhonny Green MD Referring MD: DONNIE HADLEY Indications: Elevated liver enzymes, Suspected choledocholithiasis Medicines: Propofol per Anesthesia Complications: No immediate complications. Estimated Blood Loss: Estimated blood loss: none. Procedure: Pre-Anesthesia Assessment: - Prior to the procedure, a History and Physical was performed, and patient medications, allergies and sensitivities were reviewed. The patient's tolerance of previous anesthesia was reviewed. - The risks and benefits of the procedure and the sedation options and risks were discussed with the patient. All questions were answered and informed consent was obtained. - Patient identification and proposed procedure were verified prior to the procedure by the physician and the nurse. The procedure was verified in the procedure room. - Pre-procedure physical examination revealed no contraindications to sedation. After obtaining informed consent, the endoscope was passed under direct vision. Throughout the procedure, the patient's blood pressure, pulse, and oxygen saturations were monitored continuously. The scope was introduced through the mouth, and advanced to the second part of duodenum. The upper EUS was accomplished without difficulty. The patient tolerated the procedure well. Findings: ENDOSONOGRAPHIC FINDING: : There was no sign of significant endosonographic abnormality in the ampulla. No masses were identified. Multiple stones were visualized endosonographically in the gallbladder. They were hyperechoic and characterized by shadowing. A small amount of hyperechoic material consistent with sludge was visualized endosonographically in the common bile duct. The maximum diameter of the duct was 6 mm. There was no sign of significant endosonographic abnormality in the visualized portion of the liver. Homogeneous parenchyma was identified. There was no sign of significant endosonographic abnormality in the entire pancreas. The pancreatic duct measured up to 2 mm in diameter. There was no sign of significant endosonographic abnormality in the visualized portion of the left adrenal gland. There was no sign of significant endosonographic abnormality involving the celiac trunk. Impression: - There was no sign of significant pathology in the ampulla. - Multiple stones were visualized endosonographically in the gallbladder. - Hyperechoic material consistent with sludge was visualized endosonographically in the common bile duct. CBD diameter was 6 mm. - There was no evidence of significant pathology in the visualized portion of the liver. - There was no sign of significant pathology in the entire pancreas. - Endosonographic images of the left adrenal gland were unremarkable. - The celiac trunk was endosonographically normal. - No specimens collected. Recommendation: - Perform an ERCP today. Jhonny Green MD 01/19/2020 7:46:57 AM This report has been signed electronically. Note Initiated On: 01/18/2020 6:36 PM Number of Addenda: 0 I attest to the content of the Intraoperative Record and orders documented therein, exceptions below {[id number]}
[2020-01-19] MEDS: GABAPENTIN 300 MG CAP PO SCH (08:34)
[2020-01-19] MEDS: DULoxetine HCL 30 MG CAP PO SCH (08:34)
[2020-01-19 08:39] LABS: Albumin Level 2.9 gm/dl (3.4-5.0); BUN Creatinine Ratio 10.9 (10-20); Bilirubin Direct 0.2 mg/dl (0-0.2); Calcium 9.7 mg/dl (8.5-10.1); Creatinine Clr Calc Pharmacy 98.4 ml/min; Est GFR (African American) 105.3; Est GFR (Non-African American) 90.8; Potassium 3.9 mmol/L (3.5-5.1)
[2020-01-19 08:42] LABS: Albumin Globulin Ratio 0.7 (0.9-2); Bilirubin,Total 0.5 mg/dl (0.2-1); Globulin 4.2 gm/dl (2.5-4.0); Total Protein 7.1 gm/dl (6.4-8.2)
--- NOTE | 2020-01-19 09:35 | Gastroenterology Progress Note ---
Date of Service January 19, 2020 Assessment & Plan (1) Acute gallstone pancreatitis: (2) Acute cholecystitis: Pt is a 49 y/o female admitted with suspected gallstone pancreatitis, w cholecystitis. EUS/ERCP performed on 01/17 - cholelithiasis, biliary sludge noted. Failed biliary ductal cannulation, ERCP was technically difficult due to challenging cannulation despite attempting free hand precut sphincterotomy. Clinically improved w LFTs trending down and normalized Lipase. - NPO for cholecystecotmy with intraop cholangiogram. If any filling defect, will repeat ERCP. - Trend LFTs - Decrease IVF rate to 100ml/hr. May DC once she is tolerating PO intake. - Symptomatic management w antiemetics and analgesic otherwise Admission and Anticipated Discharge Date Admission Date: January 17, 2020 Supervising Physician Co-Signing Physician Notes I performed a history and physical examination of the patient today, including specifically on physical exam - soft abdomen. I have discussed the patient's management with the advanced practitioner. Please refer to the nurse practitioner's note for the documented findings and plan of care. IOC normal with no filling defects and good flow to duodenum. LFTs trending down. Recall Gi if needed. Subjective Pt reports no abd pain, n/v. LFTs trending down. She is scheduled for cholecystectomy in OR today Review of Systems Review of Systems: All systems reviewed & are unremarkable except as noted in HPI & below Physical Exam Constitutional: WD/WN, vitals as above well groomed, cooperative and comfortable Eyes: PERRL, conjunctivae normal, anicteric sclerae ENMT: external ear and nose normal, oropharynx normal Respiratory: normal respiratory effort, lungs clear to auscultation Cardiovascular: RRR, no murmur, no edema Gastrointestinal (Abdomen): Inspection/Auscultation: + hypoactive bowel sounds Percussion/Palpation: abdomen soft; abdomen nontender (LUQ, RUQ) Skin: no rashes, warm and dry no jaundice Psychiatric: A+Ox3, euthymic affect Lymphatic: no lymphedema Results & Data ([facility]) Vital Signs (Past 12 Hours) Vital Signs Temp Pulse Pulse Pulse Resp BP Pulse Ox 01/19/20 08:00 36.8 C 76 18 115/76 95 01/19/20 04:00 37.2 C 81 20 118/71 92 01/18/20 23:00 37 C 91 H 20 136/83 95 01/18/20 22:20 85 01/18/20 22:00 37.0 C 89 16 121/79 90
[2020-01-19] MEDS ORDERED: BUPIVACAINE 0.5 % 5 MG/1 ML MPF 30ML VIAL ONE (10:24)
[2020-01-19] MEDS ORDERED: ePHEDrine sulfate 50 MG/ML AMP IV PRN (10:53)
[2020-01-19] MEDS ORDERED: ATROPINE SULFATE 0.1 MG/ML 10ML SYR IV PRN (10:53)
[2020-01-19] MEDS ORDERED: ONDANSETRON INJ 2 MG/ML 2 ML VIAL IV PRN (10:53)
[2020-01-19] MEDS ORDERED: PROMETHAZINE HCL 6.25 MG in SODIUM CHLORIDE 0.9% 50 ML IV PRN (10:53)
[2020-01-19] MEDS ORDERED: SCOPOLAMINE 1.5 MG TDSY TD ONE (10:53)
--- NOTE | 2020-01-19 11:02 | Surgery Progress Note ---
Date of Service January 19, 2020 Assessment & Plan (1) Acute gallstone pancreatitis: Cholelithiasis with cholecystitis, gallstone pancreatitis, and choledocholithiasis status post ERCP Plan for laparoscopic cholecystectomy with possible cholangiogram The risk the procedure were discussed to include but not limited to bleeding, infection, retained stone, bile leak, damage to surrounding structures including common bile duct, conversion open, need for future or more extensive surgery or procedures, and the risk of anesthesia (2) Acute cholecystitis: Admission and Anticipated Discharge Date Admission Date: January 17, 2020 Subjective 49-year-old female admitted with choledocholithiasis and gallstone pancreatitis. She underwent ERCP last night with some sludge in the duct. She feels much better this morning. No other changes. Physical Exam Constitutional: WD/WN, vitals as above Gastrointestinal (Abdomen): normal bowel sounds, soft, nontender, no hepatosplenomegaly Results & Data ([facility]) Vital Signs (Past 12 Hours) Vital Signs Temp Pulse Resp BP Pulse Ox 01/19/20 08:00 36.8 C 76 18 115/76 95 01/19/20 04:00 37.2 C 81 20 118/71 92 Laboratory Results Laboratory Results - last 24 hr 01/19/20 07:25 Sodium 140 Potassium 3.9 Chloride 109 H Carbon Dioxide 23 Anion Gap 8.0 BUN 8 Creatinine 0.76 Est Cr Clr Drug Dosing 98.4 Est GFR ( Amer) 105.3 Est GFR (Non-Af Amer) 90.8 BUN/Creatinine Ratio 10.9 Glucose 99 Calcium 9.7 Total Bilirubin 0.5 Direct Bilirubin 0.2 AST 63 H ALT 222 H Alkaline Phosphatase 176 H Total Protein 7.1 Albumin 2.9 L Globulin 4.2 H Albumin/Globulin Ratio 0.7 L Lipase 196 PG Care Time/CCT Total # of Minutes Spent Total Time Spent with Patient: Total time spent is greater than 50% in coordination of care (as documented) at patient's floor/unit and/or counseling patient: Coding Level of Care Code 60275 Inpt Consult Level 3 Diagnoses Acute gallstone pancreatitis K85.10 Acute cholecystitis K81.0
[2020-01-19] MEDS ORDERED: fentaNYL citrate 100 MCG/2 ML VIAL ONE ×3 (11:25→12:14)
[2020-01-19] MEDS ORDERED: MIDAZOLAM HCL 1 MG/ML 2ML VIAL ONE (11:25)
[2020-01-19] MEDS ORDERED: OPTIRAY 300 IV PRN (11:50)
[2020-01-19] MEDS ORDERED: LIDOCAINE HCL 2% 2 ML VIAL/AMP(20MG/ML) INFIL ONE (12:11)
[2020-01-19] MEDS ORDERED: NEOSTIGMINE METHYLSULFATE 5 MG/5 ML SYR ONE (12:11)
[2020-01-19] MEDS ORDERED: DEXAMETHASONE SOD INJ 4 MG/ML VIAL ONE (12:11)
[2020-01-19] MEDS ORDERED: ONDANSETRON INJ 2 MG/ML 2 ML VIAL ONE (12:11)
[2020-01-19] MEDS ORDERED: ROCURONIUM BROMIDE 10 MG/ML 5 ML VIAL IV ONE (12:11)
[2020-01-19] MEDS ORDERED: GLYCOPYRROLATE 0.2 MG/ML VIAL ONE (12:11)
[2020-01-19] MEDS ORDERED: PROPOFOL IV EMULSION 10 MG/ML 20 ML VIAL IV ONE (12:11)
--- NOTE | 2020-01-19 12:14 | Operative Report ---
PG Post Operative Report Pre & Post Diagnosis Operation Date: 01/19/20 07:00 Pre-Op Diagnosis: Acute gallstone pancreatitis; acute cholecystitis; choledocholithiasis Post-Op Diagnosis: Acute gallstone pancreatitis; acute cholecystitis; choledocholithiasis I identified the patient and participated in the time-out.: Yes Procedure Operation Date: 01/19/20 07:00 Actual Procedures p Laparoscopic Cholecystectomy, Intraoperative Cholangiogram - Donovan Sheldon DO, NACHO Surgeon Donovan Sheldon DO, NACHO [employer] Keo Morales Estimated Blood Loss 10 Findings Consistent with Post-Op Diagnosis Chronic gallbladder inflammation. Critical view of safety obtained. Cholangiogram showed filling of the hepatic radicles and common bile duct with no filling defects. Contrast flowed into the duodenum. Cystic duct and artery doubly clipped and divided. Specimens Gallbladder Anesthesia Type General Complications none Disposition Accompanied Patient To Recovery: No Disposition: Recovery Room Indications 49-year-old female admitted with gallstone pancreatitis and choledocholithiasis, post procedure day #1 from ERCP with sludge. Plan for laparoscopic cholecystectomy with possible cholangiogram. The risks of the procedure were discussed, all questions were answered, and the patient agreed to proceed with surgery as planned. Description of Procedure The patient was properly identified, consented, and taken to the operating room where she was placed in the supine position. General endotracheal anesthesia was induced. SCDs and a safety belt were placed. Preoperative antibiotics were administered. The patient's abdomen was prepped and draped in the standard sterile fashion. A surgical timeout was performed and all parties were in agreement that this was the correct patient and procedure to be performed and we continued as planned. An incision was made superior and to the left of the umbilicus overlying the rectus muscle and the Veress needle was inserted. Saline drop test confirmed entry into the peritoneum. The abdomen was insufflated with carbon dioxide which the patient tolerated without incident. The abdomen was then entered using the Optiview technique and a 5 mm trocar. The laparoscope was inserted and no damage from initial trocar or Veress needle placement was noted, no gross abnormalities were noted within the 4 quadrants of the abdomen. An 11 mm port was placed in the subxiphoid position and two 5 mm ports were then placed in the right subcostal position. The patient was placed in reverse Trendelenburg position and rotated towards the left. The gallbladder was chronically inflamed. The dome of the gallbladder was retracted towards the left upper quadrant and the infundibulum was retracted toward the right lower quadrant revealing Calot's triangle. Peritoneal attachments were taken down with electrocautery and blunt dissection. The cystic duct and artery were circumferentially dissected. A window of safety was obtained showing the cystic duct entering the gallbladder with no aberrant structures noted. The Ulrich cholangiocatheter was then used to perform an intraoperative cholangiogram which showed no filling defects, and good filling of the duodenum and hepatic radicals with contrast. The cystic duct and artery were doubly clipped and divided. The gallbladder was then lifted off the gallbladder fossa with electrocautery. The gallbladder was placed in an Endo Catch bag and removed through the subxiphoid port site. The right upper quadrant was irrigated and hemostasis was found to be good. 5 mm trochars were removed under direct visualization and the abdomen was allowed to collapse. The subxiphoid port site fascia was closed with 0 Vicryl suture utilizing the Maldonado-Shreya device. The wound was irrigated, and the skin of all ports was closed with 4-0 Monocryl subcuticular sutures. Dermabond was placed over the wounds. The gallbladder was opened on the back table and had thick sludge and multiple small gravel-like stones. The patient was extubated in the operating room and taken to the PACU where she recovered without apparent incident. All sponge, instrument and needle counts were correct at the conclusion of the procedure. The patient tolerated the procedure well. The physician's assistant professor of spanish was present and scrubbed for the entirety of the case and was essential in positioning the patient, prepping and draping, retraction and exposure, driving the laparoscope, removal of the gallbladder, closure the incisions, and placement of the dressings. I attest to the content of the Intraoperative Record and any orders documented therein. Any exceptions are noted below.
--- NOTE | 2020-01-19 12:22 | Fluoroscopy Report ---
[place] cholangiogram OR CLINICAL HISTORY: Cholelithiasis. Intraoperative cholangiogram during cholecystectomy COMPARISON STUDY: ERCP dated 01/18/2020 FLUOROSCOPY TIME: 22 seconds. NUMBER OF FLUOROSCOPIC IMAGES: 5 FINDINGS: The cystic duct common bile duct and common hepatic duct and proximal intrahepatic biliary ducts were opacified. There are no filling defects to indicate a definite gallstone. There is free fl ow into the duodenum. A small common hepatic duct filling defect likely represents an air bubble. IMPRESSION: Very small common hepatic duct filling defect likely representing an air bubble. Free fl ow of contrast into the duodenum. ACT 112: Negative or not required by law. Electronically signed by: Иван Meza M.D. 01/19/2020 12:21 PM
[2020-01-19] MEDS: fentaNYL citrate 100 MCG/2 ML VIAL IV PRN ×4 (12:35→12:50)
--- NOTE | 2020-01-19 13:11 | Anesthesiology Progress Note ---
Date of Service January 19, 2020 Anesthesia Post Procedure Vital Signs Vital Signs: Temp Pulse Pulse Pulse Pulse Resp BP 01/19/20 13:05 58 L 16 174/87 H 01/19/20 12:55 56 L 16 166/57 H 01/19/20 12:45 57 L 16 176/91 H 01/19/20 12:35 57 L 16 192/89 H 01/19/20 12:28 98.1 F 55 L 16 170/81 H 01/19/20 10:50 98.8 F 80 18 142/86 H 01/19/20 08:00 98.2 F 76 18 115/76 01/19/20 04:00 99.0 F 81 20 118/71 01/18/20 23:00 98.6 F 91 H 20 136/83 01/18/20 22:20 85 01/18/20 22:00 98.6 F 89 16 121/79 01/18/20 21:30 98.1 F 88 16 121/79 01/18/20 21:00 98.1 F 91 H 16 138/84 01/18/20 20:48 98.2 F 86 15 138/72 01/18/20 20:40 98.2 F 86 15 143/83 H 01/18/20 20:30 90 15 155/81 H 01/18/20 20:20 101 H 17 137/73 01/18/20 20:12 97.9 F 101 H 16 146/90 H 01/18/20 18:21 98.4 F 87 16 141/80 H 01/18/20 15:30 80 01/18/20 15:27 97.7 F 85 20 136/89 Pulse Ox 01/19/20 13:05 99 01/19/20 12:55 99 01/19/20 12:45 100 01/19/20 12:35 100 01/19/20 12:28 100 01/19/20 10:50 97 01/19/20 08:00 95 01/19/20 04:00 92 01/18/20 23:00 95 01/18/20 22:20 01/18/20 22:00 90 01/18/20 21:30 92 01/18/20 21:00 93 01/18/20 20:48 94 01/18/20 20:40 94 01/18/20 20:30 96 01/18/20 20:20 96 01/18/20 20:12 97 01/18/20 18:21 98 01/18/20 15:30 01/18/20 15:27 94 Pain Intensity Bilateral Abdomen: Pain Intensity: 5 Transfer of Care Handoff Completed per policy Notes Mental Status: alert / awake / arousable and participated in evaluation Patient Amnestic to Procedure: Yes Nausea / Vomiting: adequately controlled Pain: adequately controlled Airway Patency, RR, SpO2: stable & adequate BP & HR: stable & adequate Hydration State: stable & adequate Anesthetic Complications: no major complications apparent and Pt Satisfied with anesthetic care
[2020-01-19] MEDS ORDERED: HYDROmorphone INJ 0.5 MG/0.5 ML SYR IV PRN (13:31)
[2020-01-19] MEDS: HEPARIN SOD 5,000 UNIT/0.5 ML VIAL SQ SCH ×2 (14:19→21:29)
[2020-01-19] MEDS: CHECK SCOPOLAMINE PATCH PLACEMENT SCH (14:25)
[2020-01-19] MEDS: PANTOprazole 40 MG in SYRINGE 0 ML IV SCH (14:25)
[2020-01-19] MEDS ORDERED: Nursing to Pharmacy Communication SCH (14:30)
[2020-01-19] MEDS: KETOROLAC 30 MG/ML VIAL IV PRN (16:10)
[2020-01-19] MEDS: HYDROmorphone INJ 0.5 MG/0.5 ML SYR IV PRN ×2 (16:11→23:52)
--- NOTE | 2020-01-19 20:19 | Hospitalist Progress Note ---
Date of Service January 19, 2020 Assessment & Plan (1) Biliary acute pancreatitis: present on admission with worsening abdominal pain associated with N/V Lipase on admission 5K Elevated liver enzymes with AST 548, ALT 480 and Alk 212 on admission Gallbladder u/s showed cholelithiasis, borderline gallbladder wall thickening with mild gallbladder wall hyperemia Gastro on board S/P EUS/ERCP performed by Dr. Green on 01/17 ERCP was difficult, failed biliary ductal cannulation Continue IVF, Lipase improved to 1K then normalized Continue pain control and antiemetic Continue monitor closely (2) Transaminitis: AST 548 and ALT 480 and ALK 212 on admission Liver enzymes improved today with AST 211, ALT 337 and ALK 190 S/P ERCP was difficult, failed biliary ductal cannulation Liver enzymes trending down with AST 63, ALT 222 and ALK 176 today Continue monitor LFT (3) Acute cholecystitis: Gallbladder u/s showed cholelithiasis, borderline gallbladder wall thickening with mild gallbladder wall hyperemia. S/P Laparoscopic Cholecystectomy, Intraoperative Cholangiogram performed today by Dr Sheldon Tolerated clear liquid diet Pain improves Continue pain control Continue monitor closely (4) GERD without esophagitis: Continue PPI therapy (5) Nonintractable migraine: Holding supplements while NPO Will continue riboflavin and mag oxide once able to tolerate PO Continue Maxalt prn (6) Fibromyalgia: Continue Cymbalta and gabapentin Admission and Anticipated Discharge Date Admission Date: January 17, 2020 Subjective Pt was seen and examined Sitting in chair with no distress eating dinner Pt said that she feels much better today She said that she is able to tolerate her clear liquid diet She said that she has tenderness around the site of the procedure Denies any chest pain, palpitation, dizziness and SOB Physical Exam Physical Exam: General- No acute distress Head- atraumatic Eyes- PERRL, EOMI, ENT- oropharynx clear Neck- supple, no JVD Lungs- clear to auscultation Heart- regular rhythm; no murmur Abdomen- +hypoactive bowel sound +tenderness Extremities- no calf tenderness Neuro- alert, oriented x 3; PERRL, EOMI; no facial palsy; no dysarthria Skin- warm & dry Results & Data Results & Data ([facility]) Vital Signs (Past 12 Hours) Vital Signs Temp Pulse Pulse Pulse Resp BP Pulse Ox 01/19/20 16:29 36.6 C 73 16 130/82 100 01/19/20 15:32 36.7 C 68 16 136/84 97 01/19/20 14:32 36.6 C 63 16 147/84 H 97 01/19/20 14:00 60 16 157/95 H 95 01/19/20 13:30 36.6 C 53 L 16 161/89 H 99 01/19/20 13:15 36.8 C 58 L 58 L 16 168/81 H 99 01/19/20 13:05 58 L 16 174/87 H 99 01/19/20 12:55 56 L 16 166/57 H 99 01/19/20 12:45 57 L 16 176/91 H 100 01/19/20 12:35 57 L 16 192/89 H 100 01/19/20 12:28 36.7 C 55 L 16 170/81 H 100 01/19/20 10:50 37.1 C 80 18 142/86 H 97 (1) Biliary acute pancreatitis Acute pancreatitis complication: unspecified Qualified Code(s): K85.10 - Biliary acute pancreatitis without necrosis or infection (2) Nonintractable migraine Migraine type: unspecified Status migrainosus presence: without status migrainosus Qualified Code(s): G43.909 - Migraine, unspecified, not intractable, without status migrainosus
[2020-01-20] MEDS: LACTATED RINGER'S 1,000 ML IV SCH ×2 (01:11→14:08)
[2020-01-20] MEDS: CHECK SCOPOLAMINE PATCH PLACEMENT SCH ×3 (01:11→15:00)
[2020-01-20] MEDS: HEPARIN SOD 5,000 UNIT/0.5 ML VIAL SQ SCH ×3 (06:44→23:20)
[2020-01-20 07:13] LABS: Hematocrit (blood only) 37.2 % (37-47); Hemoglobin 12.2 g/dL (12.0-16.0); Mean Corpuscular Hemoglobin 30.9 pg (25-34); Mean Corpuscular Hgb Conc 32.8 g/dL (32-36); Mean Corpuscular Volume 94.2 fL (80-100); Mean Platelet Volume 9.4 fL (7.4-10.4); Platelet Count 260 K/uL (130-400); RDW Standard Deviation 45.2 fL (36.4-46.3); Red Blood Count 3.95 M/uL (4.2-5.4); White Blood Count 11.13 K/uL (4.8-10.8)
[2020-01-20 07:33] LABS: Albumin Level 2.9 gm/dl (3.4-5.0); Bilirubin Direct 0.2 mg/dl (0-0.2); Bilirubin,Total 0.5 mg/dl (0.2-1); Total Protein 6.5 gm/dl (6.4-8.2)
[2020-01-20] MEDS: GABAPENTIN 300 MG CAP PO SCH (07:34)
[2020-01-20] MEDS: DULoxetine HCL 30 MG CAP PO SCH (07:34)
[2020-01-20] MEDS: PANTOprazole 40 MG in SYRINGE 0 ML IV SCH (11:17)
[2020-01-20] MEDS: HYDROmorphone INJ 0.5 MG/0.5 ML SYR IV PRN ×2 (11:19→21:42)
--- NOTE | 2020-01-20 11:24 | Surgery Progress Note ---
Date of Service January 20, 2020 Assessment & Plan (1) Acute cholecystitis: Postoperative day #1 status post laparoscopic cholecystectomy and attempted ERCP Cholangiogram showed flow into the duodenum. Bilirubin is normal. Tolerating clear liquid diet agree with advancing to full liquid Continue analgesics Continue to encourage ambulation Agree with the patient 1 more day Admission and Anticipated Discharge Date Admission Date: January 17, 2020 Subjective Postoperative day #1 status post laparoscopic cholecystectomy and attempted ERCP Patient describes pain as 4-5 out of 10 Was ambulating in the halls Denies nausea and vomiting tolerating a clear liquid diet Physical Exam Gastrointestinal (Abdomen): Inspection/Auscultation: abdomen not distended Percussion/Palpation: + abdomen tender (Upper abdomen and incisional only) and abdomen soft Results & Data ([facility]) Vital Signs (Past 12 Hours) Vital Signs Temp Pulse Resp BP Pulse Ox 01/20/20 07:04 36.5 C 64 16 143/82 H 95 Laboratory Results 01/20/20 01/20/20 Range/Units 06:21 06:21 WBC 11.13 H (4.8-10.8) K/uL RBC 3.95 L (4.2-5.4) M/uL Hgb 12.2 (12.0-16.0) g/dL Hct 37.2 (37-47) % MCV 94.2 (80-100) fL MCH 30.9 (25-34) pg MCHC 32.8 (32-36) g/dL RDW Std Deviation 45.2 (36.4-46.3) fL RDW Coeff of Darrin 13.0 (11.5-14.5) % Plt Count 260 (130-400) K/uL MPV 9.4 (7.4-10.4) fL Total Bilirubin 0.5 (0.2-1) mg/dl Direct Bilirubin 0.2 (0-0.2) mg/dl AST 70 H (15-37) U/L ALT 184 H (12-78) U/L Alkaline Phosphatase 165 H (45-117) U/L Total Protein 6.5 (6.4-8.2) gm/dl Albumin 2.9 L (3.4-5.0) gm/dl Lipase 68 L (73-393) U/L
[2020-01-20] MEDS: KETOROLAC 30 MG/ML VIAL IV PRN (14:06)
--- NOTE | 2020-01-20 18:58 | Hospitalist Progress Note ---
Date of Service January 20, 2020 Assessment & Plan (1) Biliary acute pancreatitis: present on admission with worsening abdominal pain associated with N/V Lipase on admission 5K Elevated liver enzymes with AST 548, ALT 480 and Alk 212 on admission Gallbladder u/s showed cholelithiasis, borderline gallbladder wall thickening with mild gallbladder wall hyperemia Gastro on board S/P EUS/ERCP performed by Dr. Green on 01/17 ERCP was difficult, failed biliary ductal cannulation Continue IVF, Lipase improved to 1K then normalized Continue pain control and antiemetic Continue monitor closely (2) Transaminitis: AST 548 and ALT 480 and ALK 212 on admission Liver enzymes improved today with AST 211, ALT 337 and ALK 190 S/P ERCP was difficult, failed biliary ductal cannulation Liver enzymes trending down with AST 63, ALT 222 and ALK 176 today Continue monitor LFT (3) Acute cholecystitis: Gallbladder u/s showed cholelithiasis, borderline gallbladder wall thickening with mild gallbladder wall hyperemia. S/P day#1 Laparoscopic Cholecystectomy, Intraoperative Cholangiogram performed today by Dr Sheldon Diet advanced to full liquid Pain improves Continue pain control Continue monitor closely (4) GERD without esophagitis: Continue PPI therapy (5) Nonintractable migraine: Holding supplements while NPO Will continue riboflavin and mag oxide once able to tolerate PO Continue Maxalt prn (6) Fibromyalgia: Continue Cymbalta and gabapentin Admission and Anticipated Discharge Date Admission Date: January 17, 2020 Subjective Pt was seen and examined Sitting in bed with no distress Pt said that she feels much better She said that she tolerated clear liquid diet Denies any chest pain, palpitation, dizziness and SOB Physical Exam Physical Exam: General- No acute distress Head- atraumatic Eyes- PERRL, EOMI, ENT- oropharynx clear Neck- supple, no JVD Lungs- clear to auscultation Heart- regular rhythm; no murmur Abdomen- +hypoactive bowel sound +tenderness Extremities- no calf tenderness Neuro- alert, oriented x 3; PERRL, EOMI; no facial palsy; no dysarthria Skin- warm & dry Results & Data Results & Data ([facility]) Vital Signs (Past 12 Hours) Vital Signs Temp Pulse Resp BP Pulse Ox 01/20/20 15:13 36.8 C 73 16 124/76 94 01/20/20 07:04 36.5 C 64 16 143/82 H 95 (1) Biliary acute pancreatitis Acute pancreatitis complication: unspecified Qualified Code(s): K85.10 - Biliary acute pancreatitis without necrosis or infection (2) Nonintractable migraine Migraine type: unspecified Status migrainosus presence: without status migrainosus Qualified Code(s): G43.909 - Migraine, unspecified, not intractable, without status migrainosus
[2020-01-20] MEDS ORDERED: LACTATED RINGER'S 1,000 ML IV SCH (19:15)
[2020-01-20] MEDS ORDERED: ACETAMINOPHEN 325 MG TAB PO PRN (23:44)
[2020-01-21] MEDS: oxyCODONE HCL IR 5 MG TAB (IMMEDIATE RELEASE) PO PRN ×2 (02:03→17:09)
[2020-01-21] MEDS: LACTATED RINGER'S 1,000 ML IV SCH (05:36)
[2020-01-21] MEDS: HEPARIN SOD 5,000 UNIT/0.5 ML VIAL SQ SCH ×2 (06:17→13:36)
[2020-01-21] MEDS: KETOROLAC 30 MG/ML VIAL IV PRN (06:27)
[2020-01-21] MEDS: DULoxetine HCL 30 MG CAP PO SCH (07:52)
[2020-01-21] MEDS: GABAPENTIN 300 MG CAP PO SCH (07:52)
[2020-01-21] MEDS: CHECK SCOPOLAMINE PATCH PLACEMENT SCH ×2 (07:52)
[2020-01-21 08:12] LABS: Albumin Level 2.7 gm/dl (3.4-5.0); BUN Creatinine Ratio 8.9 (10-20); Calcium 8.9 mg/dl (8.5-10.1); Creatinine Clr Calc Pharmacy 82.2 ml/min; Est GFR (African American) 84.7; Est GFR (Non-African American) 73.1; Potassium 3.4 mmol/L (3.5-5.1)
[2020-01-21 08:14] LABS: Albumin Globulin Ratio 0.8 (0.9-2); Bilirubin,Total 0.7 mg/dl (0.2-1); Globulin 3.3 gm/dl (2.5-4.0)
[2020-01-21] MEDS ORDERED: POLYETHYLENE (MIRALAX) 17 GM PACK PO PRN (08:40)
[2020-01-21] MEDS ORDERED: bisacodyL 5 MG TABEC PO ONE (08:40)
[2020-01-21] MEDS ORDERED: PANTOprazole 40 MG TAB PO SCH (09:00)
[2020-01-21] MEDS ORDERED: POTASSIUM CHLORIDE 20 MEQ TABCR PO ONE (09:30)
--- NOTE | 2020-01-21 09:34 | Surgery Progress Note ---
Date of Service January 21, 2020 Assessment & Plan (1) Acute cholecystitis: s/p lap esther, failed ercp. Bilirubin normal, lft's continue to improve. OK to advance diet (low fat ordered) and stable for discharge from surgical standpoint if able to tolerate diet. Admission and Anticipated Discharge Date Admission Date: January 17, 2020 Subjective Feeling good. No complaints. Tolerated full liquids. Pain control is good. Ambulating. Review of Systems Review of Systems: All systems reviewed & are unremarkable except as noted in HPI & below Physical Exam Constitutional: WD/WN, vitals as above Respiratory: normal respiratory effort, lungs clear to auscultation Cardiovascular: RRR, no murmur, no edema Gastrointestinal (Abdomen): Inspection/Auscultation: normal bowel sounds Percussion/Palpation: + abdomen tender (at incisions) and abdomen soft bruising at two upper abdominal incisions Neurologic: moves all extremities; no focal motor deficits Psychiatric: A+Ox3, euthymic affect Results & Data ([facility]) Vital Signs (Past 12 Hours) Vital Signs Temp Pulse Resp BP BP Pulse Ox 01/21/20 08:10 36.7 C 72 16 106/71 92 01/20/20 23:04 36.8 C 96 H 16 124/79 97 Laboratory Results Abnormal lab results 01/21/20 Range/Units 06:18 Potassium 3.4 L (3.5-5.1) mmol/L BUN/Creatinine Ratio 8.9 L (10-20) Glucose 104 H (70-99) mg/dl AST 49 H (15-37) U/L ALT 148 H (12-78) U/L Alkaline Phosphatase 140 H (45-117) U/L Total Protein 6.0 L (6.4-8.2) gm/dl Albumin 2.7 L (3.4-5.0) gm/dl Albumin/Globulin Ratio 0.8 L (0.9-2)
--- NOTE | 2020-01-21 16:44 | Hospitalist Progress Note ---
Date of Service January 21, 2020 Assessment & Plan (1) Biliary acute pancreatitis: present on admission with worsening abdominal pain associated with N/V Lipase on admission 5K Elevated liver enzymes with AST 548, ALT 480 and Alk 212 on admission Gallbladder u/s showed cholelithiasis, borderline gallbladder wall thickening with mild gallbladder wall hyperemia Gastro on board S/P EUS/ERCP performed by Dr. Green on 01/17 ERCP was difficult, failed biliary ductal cannulation Continue IVF, Lipase improved to 1K then normalized Continue pain control and antiemetic Continue monitor closely (2) Transaminitis: AST 548 and ALT 480 and ALK 212 on admission S/P ERCP was difficult, failed biliary ductal cannulation Liver enzymes continue trending down with AST 49, ALT 148 and ALK 140 today Will check LFT in 1 week (3) Acute cholecystitis: Gallbladder u/s showed cholelithiasis, borderline gallbladder wall thickening with mild gallbladder wall hyperemia. S/P day#1 Laparoscopic Cholecystectomy, Intraoperative Cholangiogram performed today by Dr Sheldon Diet advanced to low fat, tolerated Pain improves Continue pain control Continue monitor closely OK from surgery standpoint to discharge home (4) GERD without esophagitis: Continue PPI therapy (5) Nonintractable migraine: Holding supplements while NPO Will continue riboflavin and mag oxide once able to tolerate PO Continue Maxalt prn (6) Fibromyalgia: Continue Cymbalta and gabapentin Constipation Will continue laxatives/stool softner Disposition Will discharge home today Admission and Anticipated Discharge Date Admission Date: January 17, 2020 Subjective Pt was seen and examined Lying in bed with no distress Pt said that her pain is significantly improved She has not had any bowel movement yet Denies any chest pain, palpitation, dizziness and SOB Physical Exam Physical Exam: General- No acute distress Head- atraumatic Eyes- PERRL, EOMI, ENT- oropharynx clear Neck- supple, no JVD Lungs- clear to auscultation Heart- regular rhythm; no murmur Abdomen- +hypoactive bowel sound +mild tenderness Extremities- no calf tenderness Neuro- alert, oriented x 3; PERRL, EOMI; no facial palsy; no dysarthria Skin- warm & dry Results & Data Results & Data ([facility]) Vital Signs (Past 12 Hours) Vital Signs Temp Pulse Resp BP BP Pulse Ox 01/21/20 15:06 89 16 120/79 95 01/21/20 08:10 36.7 C 72 16 106/71 92 (1) Biliary acute pancreatitis Acute pancreatitis complication: unspecified Qualified Code(s): K85.10 - Biliary acute pancreatitis without necrosis or infection (2) Nonintractable migraine Migraine type: unspecified Status migrainosus presence: without status migrai nosus Qualified Code(s): G43.909 - Migraine, unspecified, not intractable, without status migrainosus
--- NOTE | 2020-01-23 11:26 | Discharge Summary ---
Date of Service January 21, 2020 Admission HPI Per Admitting Provider This is a 49 y/o female with a hx of GERD, migraines, depression, and OA who presents with epigastric pain and nausea that started yesterday. Pt reports the abrupt onset of sharp, stabbing epigastric pain yesterday late morning. It radiated to her RUQ, through to her back and to her right shoulder blade. She had associated nausea but no vomiting. The pain lasted about 3-4 hours before it subsided. By late last evening, she had started to feel better so she attempted to eat some crackers. Shortly thereafter, she developed recurrent severe epigastric pain and and nausea. She tried to sleep it off last evening but the pain kept waking her up. This morning she attempted to get ready to go to work but the pain was so severe that she decided to drive herself to the ED for evaluation. Nausea continued this morning but was relieved by Zofran given in the ED. She felt cool and clammy last evening and had diaphoresis when pain was severe but denies any fevers. This morning her urine was dark but no dy suria, hematuria, frequency. Bowel pattern is unchanged from baseline variability. She denies melena and hematochezia. She reports at least two similar episodes of pain over the summer that both occurred after eating strawberries. Those episodes lasted about an hour and resolved without additional intervention. She has a history of acid reflux that is controlled on omeprazole 40 mg daily. No prior history of gallbladder disease or pancreatitis. Admission Exam Per Admitting Provider Constitutional: WD/WN, vitals as above no acute distress Eyes: + anicteric sclerae; no conjunctival abnormality ENMT: external ear and nose normal, oropharynx normal Neck: trachea midline Respiratory: no respiratory distress and does not use accessory muscles Auscultation: lungs clear to auscultation bilaterally; no rales, no rhonchi and no wheezes Cardiovascular: regular rate and regular rhythm Heart Sounds: no gallop, no murmur and no cardiac rub Extremities: normal capillary refill; no calf tenderness and no pedal edema Gastrointestinal: Inspection/Auscultation: normal bowel sounds Percussion/Palpation: + abdomen tender (moderate epigastric and RUQ tenderness to light palpation) and abdomen soft +Nuno's sign Musculoskeletal: normocephalic, head atraumatic and neck supple Extremities: no cyanosis and no clubbing Skin: no rashes, warm and dry no jaundice Neurologic: moves all extremities; no focal motor deficits Speech / Cognition: normal speech Psychiatric: A+Ox3, euthymic affect Principal Diagnosis laparoscopic cholecystectomy- Acute cholecystitis: Biliary acute pancreatitis: Transaminitis (Elevated liver enzymes) GERD without esophagitis: Nonintractable migraine: Fibromyalgia Constipation Discharge Exam General- No acute distress Head- atraumatic Eyes- PERRL, EOMI, ENT- oropharynx clear Neck- supple, no JVD Lungs- clear to auscultation Heart- regular rhythm; no murmur Abdomen- +hypoactive bowel sound +mild tenderness Extremities- no calf tenderness Neuro- alert, oriented x 3; PERRL, EOMI; no facial palsy; no dysarthria Skin- warm & dry Discharge Data Allergies Allergy/AdvReac Type Severity Reaction Status Date / Time Sulfa (Sulfonamide Allergy Severe HIVES, Unverified 06/04/16 11:02 Antibiotics) FEVER morphine Allergy Intermediate HIVES, Unverified 06/04/16 11:02 SWELLING, FEVER, NAUSEA Penicillins Allergy Intermediate HIVES, Unverified 06/04/16 11:02 SWELLING hydromorphone [From Dilaudid] AdvReac Severe severe Verified 01/20/20 23:41 nausea as per px Consultations 01/17/20 15:09 Consult General Surgery Stat ED Decision to Admit Stat 01/17/20 18:52 Consult Gastroenterology Routine Procedures Performed Operation Date: 01/18/20 12:55 Actual Procedures p Upper Endoscopic Ultrasonography(Not Applicable) - Jhonny Green MD s Endoscopic Retrograde Cholangiopancreatogram(Not Applicable) - Jhonny Green MD Operation Date: 01/19/20 07:00 Actual Procedures p Laparoscopic Cholecystectomy, Intraoperative Cholangiogram - Donovan Sheldon, , FACS Ordered Studies 01/17/20 12:40 US gallbladder Stat 01/18/20 FL ERCP biliary ductal Routine 01/18/20 18:32 US upper EUS PACS images Routine 01/19/20 11:00 FL cholangiogram OR Routine [place] cholangiogram OR CLINICAL HISTORY: Cholelithiasis. Intraoperative cholangiogram during cholecystectomy COMPARISON STUDY: ERCP dated 01/18/2020 FLUOROSCOPY TIME: 22 seconds. NUMBER OF FLUOROSCOPIC IMAGES: 5 FINDINGS: The cystic duct common bile duct and common hepatic duct and proximal intrahepatic biliary ducts were opacified. There are no filling defects to indicate a definite gallstone. There is free flow into the duodenum. A small common hepatic duct filling defect likely represents an air bubble. IMPRESSION: Very small common hepatic duct filling defect likely representing an air bubble. Free flow of contrast into the duodenum. ACT 112: Negative or not required by law. Electronically signed by: Иван Meza M.D. 01/19/2020 12:21 PM Dictated: 01/19/201218 Transcribed: 01/19/201218 DICTATED BY: Jhonny Green MD Patient Name: Claudette Peters Procedure Date: 01/18/2020 6:36 PM Date of : 1970 Admit Type: Inpatient Age: 49 Gender: Female Attending MD: Jhonny Green MD Procedure: Upper EUS Providers: Jhonny Green MD Referring MD: DONNIE HADELY Indications: Elevated liver enzymes, Suspected choledocholithiasis Medicines: Propofol per Anesthesia Complications: No immediate complications. Estimated Blood Loss: Estimated blood loss: none. Procedure: Pre-Anesthesia Assessment: - Prior to the procedure, a History and Physical was performed, and patient medications, allergies and sensitivities were reviewed. The patient's tolerance of previous anesthesia was reviewed. - The risks and benefits of the procedure and the sedation options and risks were discussed with the patient. All questions were answered and informed consent was obtained. - Patient identification and proposed procedure were verified prior to the procedure by the physician and the nurse. The procedure was verified in the procedure room. - Pre-procedure physical examination revealed no contraindications to sedation. After obtaining informed consent, the endoscope was passed under direct vision. Throughout the procedure, the patient's blood pressure, pulse, and oxygen saturations were monitored continuously. The scope was introduced through the mouth, and advanced to the second part of duodenum. The upper EUS was accomplished without difficulty. The patient tolerated the procedure well. Findings: ENDOSONOGRAPHIC FINDING: : There was no sign of significant endosonographic abnormality in the ampulla. No masses were identified. Multiple stones were visualized endosonographically in the gallbladder. They were hyperechoic and characterized by shadowing. A small amount of hyperechoic material consistent with sludge was visualized endosonographically in the common bile duct. The maximum diameter of the duct was 6 mm. There was no sign of significant endosonographic abnormality in the visualized portion of the liver. Homogeneous parenchyma was identified. There was no sign of significant endosonographic abnormality in the entire pancreas. The pancreatic duct measured up to 2 mm in diameter. There was no sign of significant endosonographic abnormality in the visualized portion of the left adrenal gland. There was no sign of significant endosonographic abnormality involving the celiac trunk. Impression: - There was no sign of significant pathology in the ampulla. - Multiple stones were visualized endosonographically in the gallbladder. - Hyperechoic material consistent with sludge was visualized endosonographically in the common bile duct. CBD diameter was 6 mm. - There was no evidence of significant pathology in the visualized portion of the liver. - There was no sign of significant pathology in the entire pancreas. - Endosonographic images of the left adrenal gland were unremarkable. - The celiac trunk was endosonographically normal. - No specimens collected. Recommendation: - Perform an ERCP today. Jhonny Green MD 01/19/2020 7:46:57 AM This report has been signed electronically. Note Initiated On: 01/18/2020 6:36 PM Number of Addenda: 0 I attest to the content of the Intraoperative Record and orders documented therein, exceptions below {[id number]} Signed By:{f rep sign date/time1] Created/Dictated: 01/18/20 1836 Transcribed: 01/19/20 0747 DICTATED BY: Jhonny Green MD Patient Name: Claudette Peters Procedure Date: 01/18/2020 6:34 PM Date of : 1970 Admit Type: Inpatient Age: 49 Gender: Female Attending MD: Jhonny Green MD Procedure: ERCP Providers: Jhonny Green MD Referring MD: Donovan ALY Do Indications: Elevated liver enzymes, Biliary sludge Medicines: General Anesthesia Complications: No immediate complications. Estimated Blood Loss: Estimated blood loss: none. Procedure: Pre-Anesthesia Assessment: - Prior to the procedure, a History and Physical was performed, and patient medications, allergies and sensitivities were reviewed. The patient's tolerance of previous anesthesia was reviewed. - The risks and benefits of the procedure and the sedation options and risks were discussed with the patient. All questions were answered and informed consent was obtained. - Patient identification and proposed procedure were verified prior to the procedure by the physician and the nurse. The procedure was verified in the procedure room. - Pre-procedure physical examination revealed no contraindications to sedation. After obtaining informed consent, the scope was passed under direct vision. Throughout the procedure, the patient's blood pressure, pulse, and oxygen saturations were monitored continuously. The Scope was introduced through the mouth, and advanced to the duodenum without successful cannulation. The ERCP was technically difficult and complex due to challenging cannulation. The patient tolerated the procedure well. Findings: The ship carpenter film was normal. The esophagus was successfully intubated under direct vision. The scope was advanced to a normal major papilla in the descending duodenum without detailed examination of the pharynx, larynx and associated structures, and upper GI tract. The upper GI tract was grossly normal. The major papilla was very floppy and extended over two folds. The bile duct could not be cannulated with the short-nosed traction sphincterotome. A biliary pre-cut sphincterotomy was made with a monofilament needle knife using a freehand technique using ERBE electrocautery. Minor bleeding from the sphincterotomy was successfully treated. Area was successfully injected with 10 mL of a 1:10,000 solution of epinephrine through the ERCP scope for hemostasis. At this point, the procedure was aborted. Impression: - Failed biliary ductal cannulation, ERCP was technically difficult due to challenging cannulation despite attempting free hand precut sphincterotomy. Recommendation: - Return patient to hospital hart for ongoing care. - Discussed with Surgeon, he can proceed with Lap Coral tomorrow but would prefer an IOC to be done. If IOC shows a filling defect then will repeat ERCP utilizing an EUS guided biliary access (rendezvous). - Monitor LFTs. Jhonny Green MD 01/19/2020 7:43:13 AM This report has been signed electronically. Note Initiated On: 01/18/2020 6:34 PM Number of Addenda: 0 I attest to the content of the Intraoperative Record and orders documented therein, exceptions below {[id number]} Signed By:{f rep sign date/time1] Created/Dictated: 01/18/20 1834 Transcribed: 01/19/20 0743 [place] ERCP biliary ductal CLINICAL HISTORY: ERCP/EUS COMPARISON STUDY: Right upper quadrant ultrasound January 17, 2020. FLUOROSCOPY TIME: 13 seconds. FLUOROSCOPIC IMAGES: 0. FINDINGS: Fluoroscopy was provided during ERCP. No fluoroscopic images were submitted for interpretation. IMPRESSION: Fluoroscopy provided during ERCP. No fluoroscopic images submitted. ACT 112: Negative or not required by law. Electronically signed by: Ayan Umanzor M.D. 01/18/2020 8:07 PM Dictated: 01/18/202003 Transcribed: 01/18/202004 XR chest 1V portable CLINICAL HISTORY: Right upper quadrant pain. COMPARISON STUDY: No previous studies for comparison. FINDINGS: Lung volumes are mildly diminished. Linear bibasilar opacities represent atelectasis. There is no consolidation or evidence for pulmonary edema. Cardiac size is normal. Mediastinal contours are normal. IMPRESSION: Low lung volumes with bibasilar atelectasis. No acute findings. ACT 112: Negative or not required by law. Electronically signed by: Ayan Umanzor M.D. 01/17/2020 1:15 PM Dictated: 01/17/20 1314 Transcribed: 01/17/20 1314 KUB CLINICAL HISTORY: Right upper quadrant abdominal pain. COMPARISON STUDY: None. FINDINGS: A few prominent loops of small bowel within left mid abdomen are noted. There is no convincing evidence for a bowel obstruction on this exam. Postoperative findings within the lumbosacral spine are noted. A right pelvic ca lcification favors a phlebolith. IMPRESSION: A few prominent loops of small bowel within left mid abdomen without convincing evidence for a bowel obstruction. ACT 112: Negative or not required by law. Electronically signed by: Ayan Umanzor M.D. 01/17/2020 1:16 PM Dictated: 01/17/20 1316 Transcribed: 01/17/20 1316 BILIARY ULTRASOUND CLINICAL HISTORY: Right upper quadrant abdominal pain COMPARISON STUDY: No previous studies for comparison. FINDINGS: There is increased hepatic echogenicity, likely secondary to hepatic steatosis. There is presumed focal fatty sparing adjacent to the gallbladder. No pancreatic masses are visualized There is no hydronephrosis. There are multiple shadowing gallbladder calculi. There is borderline gallbladder wall thickening and mild gallbladder wall hyperemia. Clinical correlation regards to cholecystitis is recommended. The technologist reports a positive sonographic Nuno sign. The common bile duct measures 6 mm. IMPRESSION: 1. Cholelithiasis, borderline gallbladder wall thickening with mild gallbladder wall hyperemia. Technologist reported positive sonographic Nuno sign. Clinical correlation in regards to acute cholecystitis is recommended. A nuclear medicine hepatobiliary study could be obtained in follow-up to assess cystic duct patency as deemed clinically appropriate 2. Hepatic steatosis ACT 112: Negative or not required by law. Electronically signed by: Иван Meza M.D. 01/17/2020 2:14 PM Dictated: 01/17/20 1411 Transcribed: 01/17/20 1411 Hospital Course (1) Biliary acute pancreatitis: present on admission with worsening abdominal pain associated with N/V Lipase on admission 5K Elevated liver enzymes with AST 548, ALT 480 and Alk 212 on admission Gallbladder u/s showed cholelithiasis, borderline gallbladder wall thickening with mild gallbladder wall hyperemia Gastro on board S/P EUS/ERCP performed by Dr. Green on 01/17 ERCP was difficult, failed biliary ductal cannulation Continue IVF, Lipase improved to 1K then normalized Continue pain control and antiemetic Continue monitor closely (2) Transaminitis: AST 548 and ALT 480 and ALK 212 on admission S/P ERCP was difficult, failed biliary ductal cannulation Liver enzymes continue trending down with AST 49, ALT 148 and ALK 140 today Will check LFT in 1 week (3) Acute cholecystitis: Gallbladder u/s showed cholelithiasis, borderline gallbladder wall thickening with mild gallbladder wall hyperemia. S/P day#1 Laparoscopic Cholecystectomy, Intraoperative Cholangiogram performed today by Dr Sheldon Diet advanced to low fat, tolerated Pain improves Continue pain control Continue monitor closely OK from surgery standpoint to discharge home (4) GERD without esophagitis: Continue PPI therapy (5) Nonintractable migraine: Holding supplements while NPO Will continue riboflavin and mag oxide once able to tolerate PO Continue Maxalt prn (6) Fibromyalgia: Continue Cymbalta and gabapentin Constipation Will continue laxatives/stool softner Disposition Will discharge home today Total Time Total Time Spent Total Time Spent (In Minutes): 35 minutes Total Time Includes: Examination of the Patient, Discharge Planning, Medication Reconciliation, Communication With Other Providers and Other Discharge Plan Discharge Items Patient Disposition: Home - Self-Care Reason For Visit: PANCREATITIS, CHOLECYSTITIS Discharge Diagnosis: laparoscopic cholecystectomy- Acute cholecystitis: Biliary acute pancreatitis: Transaminitis (Elevated liver enzymes) GERD without esophagitis: Nonintractable migraine: Fibromyalgia Constipation Condition on Discharge: Good Activity: Per Instructions section Lifting: No more than 10 pounds Bathing Comment: may shower starting 01/20/20; no soaking in tubs/pools Exercise/Sports: Wait until after follow-up appointment Non-emergency contact: Primary Care Provider Call non-emergency contact if: you have any medication questions, your symptoms worsen, your pain is not controlled, your pain is worsening, you have a fever, your temperature is above 101.5, your wound has increased redness, your wound has increased drainage and your wound pain has increased Follow-up/Referrals: Donovan Sheldon DO, NACHO [Physician] - (Please call to schedule follow up in clinic within 1-2 weeks) Ame Costa DO [Primary Care Provider] - Diet: Low Fat Addtl Attending Provider Instructions: Follow up with primary care provider Jamee Galvez PA-C (Dr. Neal's colleague) on 01/24 @ 5:20 PM Follow up with surgery Dr. Sheldon (Please call to schedule for the appointment) Check LFT in 1 week to monitor your liver enzymes (Your physician will order it) Do not drive or operate any machine after taking the narcotic Please hold next dose of the narcotic if you become drowsy or lethargy No heavy lifting over 10 pounds for now until seeing by surgery No strenuous activity until cleared by surgeon No submerging incisions underwater for 2 weeks (no swimming, bathing, hot tubs) but you may shower and gently clean the incisions with soap and water and pat dr dillon Leave Steri-Strips on for 7 days and then remove. Walking and light activities encouraged daily to prevent blood clots from forming You will be given prescription for narcotic pain medication (Percocet) as needed for moderate severe pain. Take as directed this medication may cause drowsiness and constipation. You may take extra strength Tylenol or ibuprofen as needed for mild pain Recommend taking stool softener daily while taking pain medication. Follow-up in surgical office in 1-2 weeks. Pending Studies at Discharge: Yes Stand-Alone Forms: My [employer]kip[employer], Smoking Cessation Medications and DC Order Prescriptions: New polyethylene glycol 3350 [Miralax] 17 gram Powder In Packet 17 g PO DAILY PRN (Reason: constipation) 30 Days Qty: 30 RF: 0 oxycodone 5 mg Tablet 5 mg PO Q8H PRN (Reason: pain) Qty: 15 RF: 0 Continued cetirizine 10 mg tablet 10 mg PO DAILY RF: 0 omeprazole 40 mg capsule,delayed release(DR/EC) 40 mg PO DAILY RF: 0 estradiol 1 mg tablet 1 mg PO DAILY RF: 0 duloxetine 30 mg capsule,delayed release(DR/EC) 30 mg PO DAILY RF: 0 rizatriptan 10 mg tablet 10 mg PO UD PRN (Reason: Migraine Headache) RF: 0 gabapentin 300 mg capsule 300 mg PO DAILY RF: 0 lorazepam 1 mg tablet 1 mg PO BID PRN (Reason: Anxiety) RF: 0 nabumetone 500 mg tablet 500 mg PO DAILY RF: 0 magnesium oxide 250 mg magnesium Tablet 250 mg PO DAILY RF: 0 riboflavin (vitamin B2) 400 mg Tablet 400 mg PO DAILY RF: 0 cyanocobalamin (vitamin B-12) 100 mcg Tablet 100 mcg PO DAILY RF: 0 cranberry 400 mg Capsule 400 mg PO DAILY RF: 0 fluticasone propionate 50 mcg/actuation [place],Suspension 1 spray INTRANASAL DAILY PRN (Reason: Congestion) RF: 0 vitamin E 400 unit Capsule 400 unit PO Q OTHER DAY RF: 0 lul (Zingiber officinalis) 550 mg Capsule 550 mg PO Q OTHER DAY RF: 0 cholecalciferol (vitamin D3) 50 mcg (2,000 unit) Capsule 50 mcg PO Q OTHER DAY RF: 0 turmeric root extract 500 mg Capsule 500 mg PO Q OTHER DAY RF: 0 Discharge Orders: Discharge Order (Routine); Ordered 01/21/20 Ordered By: Cecilia Calderon/Other Patient Handouts: Cholecystectomy Admission Data Admit Date/Time: 01/17/20 15:58 Attending Provider: Cecilia Bay Admit Provider: Geena Recinos Primary Care Provider: Ame Costa Other Providers: Donovan Sheldon ; Geena Recinos ; Shanel Duran Other Interventions: Discharge Summary Assessment (RN) Last Done: 01/21/20 17:13
== END 2020-01-21 18:18 | disposition home or self-care (01) | DRG 417 ==
LOC: ED 12:18 → 2W 15:58 → SUATTDRO 15:58 → 2W 18:08 → 3E 01-19 05:35 → 3W 01-19 22:57